=== PATIENT | female | born 1945 | race Caucasian/White ===

== ENCOUNTER 2022-12-26 08:17 | Inpatient (IN) | payer MEDICARE, SELFPAY ==
[2022-12-26] VITALS (9 sets, daily range): BP systolic 121–161; BP diastolic 45–72; PULSE 56–66; RESP 12–19; TEMP 35.7–36.5; O2SAT 96–98; BMI 24.6
--- NOTE | ~2022-12-26 | XR_ITS ---
EXAMINATION: XR CHEST CLINICAL INFORMATION: Pleural effusion. COMPARISON: None available. TECHNIQUE: Frontal view of the chest was obtained. FINDINGS: Evaluation is limited by patient positioning. The lungs are moderately expanded. The left hemithorax is grossly clear. There is a moderate to large right pleural effusion. Cardiac silhouette is partially obscured. Thoracic aorta appears tortuous and ectatic. XR/XR chest 1V IMPRESSION: Moderate to large right pleural effusion.
--- NOTE | ~2022-12-26 | IR_ITS ---
EXAMINATION: IR VENOGRAPH IVC CLINICAL INFORMATION: DVT. COMPARISON: None available. TECHNIQUE: Fluoroscopic guidance was provided for IVC filter placement to Dr. Montgomery. FINDINGS: Initial image demonstrates a inferior vena cavogram via the right femoral system. Later images demonstrate placement of a [place] retrievable IVC filter with the top of the filter at the L2-L3 disc space below the renal veins. FLUOROSCOPY TIME: 1.7 minutes DOSE AREA PRODUCT: 1270 cGy.cm2 IMAGES: 4 saved fluoroscopic runs and 1 screen saved image. IR/IR IVC filter placement IMPRESSION: Fluoroscopic guidance for IVC filter placement.
--- NOTE | 2022-12-26 08:31 | ED.AMS ---
HPI - Altered Mental Status General Chief Complaint: General Medical Stated Complaint: LOW BS 39,D10 GIVEN PER EMS Time Seen by Provider: 12/26/22 08:19 Source: patient, EMS and old records reviewed Mode of arrival: EMS Limitations: no limitations History of Present Illness HPI narrative: 77-year-old female with history of DM 2 on insulin, CKD, anemia of chronic disease, left lower extremity DVT on Eliquis, CHF, HTN, HLD, COPD, muscle wasting and atrophy who was admitted to [facility] from [facility] on December 1979 who presents to the ER via EMS for evaluation of altered mental status related to hypoglycemia. Patient was found by staff members today diaphoretic and poorly responsive. Her glucose was 39. IV was established and she was started on D10 with improvement in her sugar to 120 prior to arrival to the ER. Patient states she was in her normal state of health last night. She ate a normal dinner. She has been on insulin since arriving to [facility], was previously on oral agents prior to this per her report. She states her blood sugars have been on the lower side in the mornings. She is now feeling back to baseline. She offers no physical complaints. Of note patient did have lab work drawn this morning and she was found to have a hemoglobin of 6.8, hematocrit of 21.6. She was also anemic yesterday with H&H 6.9/21.6. The day after her admission to [facility] on December 20 her H&H was 8.5/26.4. She states she had a GI bleed during her recent admission at [facility]. She states she has not been able to visualize any of the bowel movements that she has had recently when at the rehab facility. Unknown if she is still bleeding. She remains on Eliquis. complaint: altered mental status Onset (ago): hour(s) Severity: severe Context: change in medication Associated symptoms: weakness Treatments prior to arrival: glucose and IV fluid Related Data Home Medications Medication Instructions Recorded Confirmed acetaminophen 325 mg tablet 650 mg PO Q4H PRN Pain 12/26/22 12/26/22 albuterol sulfate 90 mcg/actuation 2 puff inhalation Q6H PRN Wheezing 12/26/22 12/26/22 aerosol inhaler amlodipine 10 mg tablet 10 mg PO DAILY 12/26/22 12/26/22 apixaban 2.5 mg tablet (Eliquis) 2.5 mg PO BID 12/26/22 12/26/22 ascorbic acid (vitamin C) 500 mg 500 mg PO DAILY 12/26/22 12/26/22 tablet atorvastatin 20 mg tablet 20 mg PO DAILY 12/26/22 12/26/22 carvedilol 12.5 mg tablet 12.5 mg PO BID 12/26/22 12/26/22 cyanocobalamin (vitamin B-12) 1,000 mcg PO DAILY 12/26/22 12/26/22 1,000 mcg tablet dexamethasone 4 mg tablet 4 mg PO DAILY 12/26/22 12/26/22 docusate sodium 100 mg capsule 100 mg PO BID 12/26/22 12/26/22 dronabinol 2.5 mg capsule 2.5 mg PO BID 12/26/22 12/26/22 ergocalciferol (vitamin D2) 1,250 1,250 mcg PO QWEEK 12/26/22 12/26/22 mcg (50,000 unit) capsule fenofibrate nanocrystallized 48 mg 48 mg PO DAILY 12/26/22 12/26/22 tablet ferrous sulfate 325 mg (65 mg 325 mg PO DAILY 12/26/22 12/26/22 iron) tablet furosemide 40 mg tablet 40 mg PO BID 12/26/22 12/26/22 insulin glargine 100 unit/mL (3 15 unit subcut BEDTIME 12/26/22 12/26/22 mL) subcutaneous pen insulin lispro 100 unit/mL 1 sliding scale dose subcut 12/26/22 12/26/22 subcutaneous pen (Humalog KwikPen USEASDIRECTD (U-100) Insulin) ipratropium 0.5 mg-albuterol 3 mg 3 ml inhalation Q4H PRN Wheezing 12/26/22 12/26/22 (2.5 mg base)/3 mL nebulization soln lidocaine 5 % topical patch 1 patch topical DAILY 12/26/22 12/26/22 metoclopramide HCl 5 mg tablet 5 mg PO QID 12/26/22 12/26/22 (Reglan) olanzapine 2.5 mg tablet 2.5 mg PO DAILY 12/26/22 12/26/22 pantoprazole 40 mg tablet,delayed 40 mg PO DAILY 12/26/22 12/26/22 release sucralfate 1 gram tablet 1 g PO QID 12/26/22 12/26/22 trazodone 50 mg tablet 50 mg PO BEDTIME 12/26/22 12/26/22 Allergies Allergy/AdvReac Type Severity Reaction Status Date / Time erythromycin base Allergy Unknown unknown Verified 12/26/22 08:36 [From Erythrocin] Review of Systems Review of Systems: Yes all other systems are reviewed and are negative [facility] Social History Social History Advance Directives: No Advance Directives Information Provided: Yes Physical Exam ED Vital Signs: Vital Signs - 24 hr 12/26/22 08:27 12/26/22 10:43 Pulse Rate 60 59 Respiratory Rate 18 12 Blood Pressure 128/58 L 134/45 L Pulse Oximetry 96 97 Oxygen Delivery Method Room Air Room Air BMI result Body Mass Index 24.6 Appearance: Alert. Oriented X3. No acute distress. Pale Head: normocephalic, atraumatic. Eyes: Pupils equal, round and reactive to light. ENT: Pharynx normal. No tonsillar swelling or exudate. Neck: Normal inspection. Neck supple. CVS: Normal heart rate and rhythm. Pulses normal. Respiratory: No respiratory distress. Breath sounds normal. Abdomen: Soft with tenderness periumbilically with a dressing in place, no rebound or guarding. +BS x4. LUPE with brown heme+ stool, no palpable hemorrhoids Skin: Skin warm and dry. Normal skin color. Normal skin turgor. No rashes. Extremities: No lower extremity edema. No joint swelling. Neuro/psych: Oriented X 3. No motor deficit. No sensory deficit. Weak LE bilaterally. Strength is equal and symmetrical throughout. CN II-XII intact. Normal speech and cognition. Course Reevaluation(s) Reevaluation #1: Patient was initially normoglycemic on arrival to the ER. Fingerstick was then checked and it was down to 47. She was given 2 orange juices into cheese sticks however her glucose continue to drop into the 30s. She was awake. She was and started on D10, the completion of the 250 cc bolus from EMS was given and patient was started on D 10 W at 75 cc an hour. Rectal exam performed that was positive, brown stool. She reports history of GI bleed at [facility] where she thinks she was given 4-5 units of blood during her last admission. She remains on Eliquis Time: 09:45 Reevaluation #2: Received records from [facility]. In short patient had a complex admission to [facility] in November. She had a large right-sided pleural effusion requiring chest tube, transudative fluid negative for malignancy. She had a brief ICU stay requiring BiPAP due to bradycardia, severe acidosis, lethargy and hypoxia. CT scan showed a pelvic mass, colon involvement and a biopsy was performed showing high-grade adenocarcinoma of gynecological origin. She was deemed not a candidate for chemotherapy with options hospice care verses rehab to regain strength given her cachexia. She had Bacteroides bacteremia, treated with antibiotics, likely from GI source. Echo during her admission showed wall motion abnormalities and grade 2 diastolic dysfunction. Time: 11:24 Consultations Consultation #1: GI - Dr. Figueredo Medical Decision Making Medical Decision Making MDM Narrative: 77-year-old female with a complex medical history including a newly diagnosed high-grade adenocarcinoma of gynecologic origin, DVT on Eliquis, AFib, HTN, CHF, HLD, dm, reported tissue no status with cachexia and recent admission at [facility] with pleural effusion, [place], NSTEMI, new cancer diagnosis who presents today to the ER for evaluation of acute mental status changes and hypoglycemia. She was found to be hypoglycemic at 39 at the rehab facility. She did improve with D10 however quickly dropped again. She required initiation of D10 infusion to maintain her blood glucose. She is tolerating p.o.. Hypoglycemia most likely due to cachexia, poor p.o. intake and exogenous insulin. She is on 15 units of Lantus per day along with Humalog. She states prior to her admission she was never on insulin. Will plan to hold insulin, continue D10. Patient also found to be severely anemic with hemoglobin of 7.1 today. Her hemoglobin was 6.8 yesterday from 8.5 last week. She does have heme-positive stools on examination. She is on anticoagulation. She reports history of GI bleed requiring 4-5 units of blood at [facility]. On the recent records we just received there is no record of GI bleed during that admission. Will need to go back further in her records to see when her last EGD and colonoscopy were and with the results were. No bowel movements here. No active bleeding. She is hemodynamically stable. GI is aware of her case. Dr. Figueredo was tiger texted Patient was consented for blood, 1 unit of PRBC was ordered. She has significant diastolic heart failure and her BNP is almost 800. She does not seem volume overloaded but will give her dose of Lasix with her blood transfusion. Will transfuse slowly given her risk of volume overload. Will plan for admission for further monitoring of her hypoglycemia and anemia. Hospitalist has been tiger text for admission Of note patient is DNR DNI, hospice care was discussed during her last admission and she opted to go to rehab to try to get stronger to be able to be a candidate for chemotherapy. Differential Diagnosis Differential Diagnoses: The differential diagnosis associated with the presentation includes Exogenous insulin overdose, worsening renal failure, dehydration, stroke, acute blood loss anemia, upper GI bleed, lower GI bleed Admission/Observation Consideration of admission/observation: Escalation of care including admission/observation considered Recurrent hypoglycemia and acute blood loss anemia requiring blood transfusion Consult Healthcare Provider Management of the patient was discussed with: Hospitalist and Marketing Recruiter Dr. Figueredo GI Lab Data MDM Lab Attestation statement: I reviewed the patient's lab results. Significant normocytic anemia, CKD at baseline, BUN elevated concerning for upper GI bleeding 12/26/22 09:18 12/26/22 09:18 Labs: Lab Results 12/26/22 12/26/22 12/26/22 Range/Units 08:31 08:55 09:18 WBC 9.3 (4.8-10.8) X10*3/uL RBC 2.51 L (4.20-5.50) X10*6/uL Hgb 7.1 L (12.0-16.0) g/dl Hct 22.4 L (37.0-47.0) % MCV 89.2 (80.0-98.0) fL MCH 28.3 (27.0-33.0) pg MCHC 31.7 (31.0-35.0) g/dl RDW 19.3 H (11.0-16.0) % Plt Count 267 (160-400) X10*3/uL MPV 10.3 (9.4-12.3) fL Immature Gran % (Auto) 1.0 H (0.0-0.4) % Neut % (Auto) 77.4 H (45-73) % Lymph % (Auto) 14.1 L (20-40) % [place] % (Auto) 6.3 (2-11) % Eos % (Auto) 1.1 (0-4) % Baso % (Auto) 0.1 (0-2) % Lymph # (Auto) 1.3 (1.2-4.9) X10*3/uL [place] # (Auto) 0.6 (0.1-1.2) X10*3/uL Eos # (Auto) 0.1 (0.0-0.4) X10*3/uL Baso # (Auto) 0.0 (0.0-0.2) X10*3/uL Abs Immat Gran (auto) 0.09 H (0.00-0.03) X10*3/uL Absolute Neuts (auto) 7.2 (2.0-8.3) x10*3/uL Absolute Nucleated RBC 0.000 (0.0-0.012) X10*3/uL Nucleated RBC % (auto) 0.0 (0.0-0.2) /100WBC Absolute Retic 0.079 (0.026-0.095) X10*6/uL Percent Retic 3.1 H (0.5-1.8) % Immature Retic Fraction 13.3 (3.0-15.9) % Retic Hgb Equivalent 26.3 L (30.0-35.0) pg PT (10.0-13.1) SEC INR (0.9-1.1) APTT (26.0-36.4) SEC Sodium (135-145) mmol/L Potassium (3.3-5.1) mmol/L Chloride (96-108) mmol/L Carbon Dioxide (22-29) mmol/L Anion Gap (12-20) BUN (9-16) mg/dL Creatinine (0.5-1.4) mg/dL Estim Creat Clear Calc Estimated GFR POC Glucose 48 L* 37 L* (60-115) mg/dL Random Glucose (60-115) mg/dL Calcium (8.4-10.2) mg/dL Magnesium (1.6-2.6) mg/dL Iron (30-160) mcg/dL TIBC (228-428) mcg/dL % Saturation (15-50) % Unsat Iron Binding ug/dL Total Bilirubin (0.0-1.0) mg/dL Direct Bilirubin (0.0-0.5) mg/dL AST (5-31) U/L ALT (0-31) U/L Alkaline Phosphatase (39-117) U/L B-Natriuretic Peptide (<100) pg/mL Total Protein (6.5-8.0) g/dL Albumin (3.5-5.0) g/dL Stool Occult Blood (NEGATIVE) Blood Type Antibody Screen Crossmatch 12/26/22 12/26/22 12/26/22 Range/Units 09:18 09:18 09:18 WBC (4.8-10.8) X10*3/uL RBC (4.20-5.50) X10*6/uL Hgb (12.0-16.0) g/dl Hct (37.0-47.0) % MCV (80.0-98.0) fL MCH (27.0-33.0) pg MCHC (31.0-35.0) g/dl RDW (11.0-16.0) % Plt Count (160-400) X10*3/uL MPV (9.4-12.3) fL Immature Gran % (Auto) (0.0-0.4) % Neut % (Auto) (45-73) % Lymph % (Auto) (20-40) % [place] % (Auto) (2-11) % Eos % (Auto) (0-4) % Baso % (Auto) (0-2) % Lymph # (Auto) (1.2-4.9) X10*3/uL [place] # (Auto) (0.1-1.2) X10*3/uL Eos # (Auto) (0.0-0.4) X10*3/uL Baso # (Auto) (0.0-0.2) X10*3/uL Abs Immat Gran (auto) (0.00-0.03) X10*3/uL Absolute Neuts (auto) (2.0-8.3) x10*3/uL Absolute Nucleated RBC (0.0-0.012) X10*3/uL Nucleated RBC % (auto) (0.0-0.2) /100WBC Absolute Retic (0.026-0.095) X10*6/uL Percent Retic (0.5-1.8) % Immature Retic Fraction (3.0-15.9) % Retic Hgb Equivalent (30.0-35.0) pg PT (10.0-13.1) SEC INR (0.9-1.1) APTT (26.0-36.4) SEC Sodium 134 L (135-145) mmol/L Potassium 4.1 (3.3-5.1) mmol/L Chloride 102 (96-108) mmol/L Carbon Dioxide 25 (22-29) mmol/L Anion Gap 11 L (12-20) BUN 49 H (9-16) mg/dL Creatinine 0.98 (0.5-1.4) mg/dL Estim Creat Clear Calc 44.6 Estimated GFR 55 POC Glucose (60-115) mg/dL Random Glucose 176 H (60-115) mg/dL Calcium 8.0 L (8.4-10.2) mg/dL Magnesium 1.2 L* (1.6-2.6) mg/dL Iron 39 (30-160) mcg/dL TIBC 144 L (228-428) mcg/dL % Saturation 27 (15-50) % Unsat Iron Binding 105 ug/dL Total Bilirubin 0.2 (0.0-1.0) mg/dL Direct Bilirubin < 0.2 (0.0-0.5) mg/dL AST 22 (5-31) U/L ALT 51 H (0-31) U/L Alkaline Phosphatase 155 H (39-117) U/L B-Natriuretic Peptide 753 H (<100) pg/mL Total Protein 4.6 L (6.5-8.0) g/dL Albumin 1.8 L (3.5-5.0) g/dL Stool Occult Blood (NEGATIVE) Blood Type O Positive Antibody Screen NEGATIVE Crossmatch See Detail 12/26/22 12/26/22 Range/Units 09:24 10:52 WBC (4.8-10.8) X10*3/uL RBC (4.20-5.50) X10*6/uL Hgb (12.0-16.0) g/dl Hct (37.0-47.0) % MCV (80.0-98.0) fL MCH (27.0-33.0) pg MCHC (31.0-35.0) g/dl RDW (11.0-16.0) % Plt Count (160-400) X10*3/uL MPV (9.4-12.3) fL Immature Gran % (Auto) (0.0-0.4) % Neut % (Auto) (45-73) % Lymph % (Auto) (20-40) % [place] % (Auto) (2-11) % Eos % (Auto) (0-4) % Baso % (Auto) (0-2) % Lymph # (Auto) (1.2-4.9) X10*3/uL [place] # (Auto) (0.1-1.2) X10*3/uL Eos # (Auto) (0.0-0.4) X10*3/uL Baso # (Auto) (0.0-0.2) X10*3/uL Abs Immat Gran (auto) (0.00-0.03) X10*3/uL Absolute Neuts (auto) (2.0-8.3) x10*3/uL Absolute Nucleated RBC (0.0-0.012) X10*3/uL Nucleated RBC % (auto) (0.0-0.2) /100WBC Absolute Retic (0.026-0.095) X10*6/uL Percent Retic (0.5-1.8) % Immature Retic Fraction (3.0-15.9) % Retic Hgb Equivalent (30.0-35.0) pg PT 14.7 H (10.0-13.1) SEC INR 1.3 H (0.9-1.1) APTT 35.6 (26.0-36.4) SEC Sodium (135-145) mmol/L Potassium (3.3-5.1) mmol/L Chloride (96-108) mmol/L Carbon Dioxide (22-29) mmol/L Anion Gap (12-20) BUN (9-16) mg/dL Creatinine (0.5-1.4) mg/dL Estim Creat Clear Calc Estimated GFR POC Glucose (60-115) mg/dL Random Glucose (60-115) mg/dL Calcium (8.4-10.2) mg/dL Magnesium (1.6-2.6) mg/dL Iron (30-160) mcg/dL TIBC (228-428) mcg/dL % Saturation (15-50) % Unsat Iron Binding ug/dL Total Bilirubin (0.0-1.0) mg/dL Direct Bilirubin (0.0-0.5) mg/dL AST (5-31) U/L ALT (0-31) U/L Alkaline Phosphatase (39-117) U/L B-Natriuretic Peptide (<100) pg/mL Total Protein (6.5-8.0) g/dL Albumin (3.5-5.0) g/dL Stool Occult Blood POSITIVE (NEGATIVE) Blood Type Antibody Screen Crossmatch Independent Interpretation I performed an independent interpretation of an: EKG Interpretation: EKG was sinus bradycardia, PVCs present, heart rate 57 beats per minute, normal AK interval, no ST segment elevations or depressions. Independent Historian Clinical information obtained from an independent historian. History obtained from or confirmed by: EMS External Record Review External record reviewed: Outpatient record, Prior outpatient labs and Prior outpatient radiology Prescription Management I considered prescription management with: Other (lasix, blood) Chronic Conditions Patient?s care impacted by: Diabetes and Other (AFib on Eliquis, DVT) Critical Care Time Critical Care Time Critical Care Time: Yes Total Critical Care Time: 49 Attestation: I have personally provided critical care time exclusive of time spent on separately billable procedures. Time includes review of lab data, radiology results, discussion with consultants, and monitoring for potential decompensation. Intervention performed as documented. Discharge Plan Discharge Clinical Impression: Acute blood loss anemia, Hypoglycemia, CHF (congestive heart failure), Gynecologic cancer Patient Disposition: Admitted As Inpatient
--- NOTE | 2022-12-26 08:36 | ECG_ITS ---
Test Reason : weakness Blood Pressure : / mmHG Vent. Rate : 057 BPM Atrial Rate : 057 BPM P-R Int : 140 ms QRS Dur : 100 ms QT Int : 422 ms P-R-T Axes : 027 047 -08 degrees QTc Int : 410 ms Sinus bradycardia with Premature supraventricular complexes Nonspecific T wave abnormality Abnormal ECG No previous ECGs available Referred By: Day Garcia Electronically Signed By:RAYMOND AVALOS MD
[2022-12-26 09:03] LABS: Glucose, Whole Blood 48 mg/dL (60-115)
[2022-12-26 09:04] LABS: Glucose, Whole Blood 37 mg/dL (60-115)
[2022-12-26 09:23] LABS: MANUAL DIFF FLAG NO
[2022-12-26 09:26] LABS: Basophils Percent Auto 0.1 % (0-2); Eosinophils Absolute Auto 0.1 X10*3/uL (0.0-0.4); Eosinophils Percent Auto 1.1 % (0-4); Hematocrit 22.4 % (37.0-47.0); Hemoglobin 7.1 g/dl (12.0-16.0); Imm Gran Abs Auto 0.09 X10*3/uL (0.00-0.03); Immature Retic Fraction 13.3 % (3.0-15.9); Lymphocytes Absolute Auto 1.3 X10*3/uL (1.2-4.9); Lymphocytes Percent Auto 14.1 % (20-40); Mean Corpuscular HGB Conc 31.7 g/dl (31.0-35.0); Mean Corpuscular Hemoglobin 28.3 pg (27.0-33.0); Mean Corpuscular Volume 89.2 fL (80.0-98.0); Mean Platelet Volume 10.3 fL (9.4-12.3); Monocytes Absolute Auto 0.6 X10*3/uL (0.1-1.2); Monocytes Percent Auto 6.3 % (2-11); Neutrophils Absolute Auto 7.2 x10*3/uL (2.0-8.3); Neutrophils Percent Auto 77.4 % (45-73); Platelet Count 267 X10*3/uL (160-400); Red Blood Count 2.51 X10*6/uL (4.20-5.50); Red Cell Distribution Width 19.3 % (11.0-16.0); Retic HGB Equivalent 26.3 pg (30.0-35.0); Reticulocyte Percent 3.1 % (0.5-1.8); Reticulocytes Absolute 0.079 X10*6/uL (0.026-0.095); White Blood Count 9.3 X10*3/uL (4.8-10.8)
--- NOTE | 2022-12-26 09:38 | PHA.MEDREC ---
Pharmacy Consult ? Medication Reconciliation Pharmacy has completed the medication reconciliation. List from [facility]
[2022-12-26 09:40] LABS: OBS Int Ctl Valid YES; OBS1 POSITIVE (NEGATIVE)
--- NOTE | 2022-12-26 09:41 | PC.NURSE ---
notified that patient is here
[2022-12-26 10:03] LABS: Alanine Aminotransferase 51 U/L (0-31); Albumin Level 1.8 g/dL (3.5-5.0); Alkaline Phosphatase 155 U/L (39-117); Anion Gap 11 (12-20); Aspartate Amino Transferase 22 U/L (5-31); Bilirubin Direct < 0.2 mg/dL (0.0-0.5); Bilirubin Total 0.2 mg/dL (0.0-1.0); Blood Urea Nitrogen 49 mg/dL (9-16); Carbon Dioxide 25 mmol/L (22-29); Chloride 102 mmol/L (96-108); Creatinine Clr Calc Pharmacy 44.6; Estimated Glomerular Filt Rate 55; Glucose Random 176 mg/dL (60-115); Iron 39 mcg/dL (30-160); Percent Iron Saturation 27 % (15-50); Potassium 4.1 mmol/L (3.3-5.1); Sodium 134 mmol/L (135-145); Total Iron Binding Capacity 144 mcg/dL (228-428); Total Protein 4.6 g/dL (6.5-8.0); Unsaturated Iron Binding 105 ug/dL
[2022-12-26 10:04] LABS: Magnesium 1.2 mg/dL (1.6-2.6)
[2022-12-26 10:11] LABS: B Type Natriuretic Peptide 753 pg/mL (<100)
[2022-12-26] MEDS: Dextrose 10 % 1,000 ML 75 ML IVCONT (11:00)
[2022-12-26 11:04] LABS: INTERNATIONAL NORM RATIO 1.3 (0.9-1.1); Prothrombin Time 14.7 SEC (10.0-13.1)
[2022-12-26 11:06] LABS: Partial Thromboplastin Time 35.6 SEC (26.0-36.4)
[2022-12-26 12:29] LABS: Glucose, Whole Blood 127 mg/dL (60-115)
[2022-12-26 12:33] LABS: Glucose, Whole Blood 126 mg/dL (60-115)
[2022-12-26] MEDS: Magnesium Sulfate/H2O 2 GM/50 ML PIGGYBACK IV ×2 (12:51→14:31)
[2022-12-26] MEDS: Furosemide 40 MG/4 ML VIAL IVPUSH (12:52)
--- NOTE | 2022-12-26 13:13 | P.HPHOSP_ITS ---
History of Present Illness Date of Service: 12/26/22 Attending physician on admission: Soila Smith Chief Complaint: AMS, hypoglycemia Pt is a 77-year-old female with a PMH significant for HTN, HLD, insulin- dependent diabetes type 2, CKD, DVT, COPD, anemia, anxiety, AFib on Eliquis, HFrEF, and 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 Patient is in short-term rehab at [facility] and was found by staff this morning to be diaphoretic and poorly responsive. POC glucose was measured at 39. EMS call, IV was established, and patient was started on D10 with improvement to mentation. Patient notes she has to be only on oral diabetic medications -- metformin and glipizide -- but started on insulin of week ago after recent discharge from [facility]. Patient with a history of cachexia and anorexia, but states that she has been eating well lately. During current interview patient is alert and oriented x4 and asymptomatic. Her only complaint is fatigue, chronic leg swelling, and chronic mild lower abdominal pain. Denies chest pain/pressure, palpitations. No shortness of breath in denies headache, lightheadedness, dizziness. Of note, pt recently was at [facility] for a prolonged admission from 11/25-12/19/2022. Use supra gently admitted for acute hypoxic respiratory failure and right-sided pneumonia with large right pleural effusion and required chest tube. Hospital course complicated by Gram-negative haley bacteremia, BYRON, lethargy, hypoxia, bradycardia, and severe acidosis that required an ICU stay on BiPAP. CT of abdomen and pelvis also found multiple masses suspicious for metastatic malignancy. CT-guided biopsy on 12/05 found high-grade and dental carcinoma of gynecological origin with likely multiple metastases to colon. During patient's stay she also developed AFib and echocardiogram revealed reduced LVEF of 45-50%. Patient was not found to be a candidate for chemotherapy due to deconditioning. Palliative care was discussed with family, but patient elected to go to short-term rehab in order to gain strength and mobility in order to become a candidate for chemotherapy. Of note, patient was previously at [facility] for physical therapy and rehab in October 2022, was found there to have a DVT of left lower extremity and started on Eliquis. In the ED patient was afebrile, slightly hypotensive at 128/58, satting at 96% on RA. Labs were significant for H&H of 7.1/22.4, POC glucose as low as 37, magnesium of 1.2, ALT 51, alk-phos of 155, BNP 753, albumin 1.8. Stool positive for occult blood. CXR showed moderate to large right pleural effusion. ?EKG demonstrated sinus bradycardia of 57 with premature supraventricular complexes and no evidence of ST elevations or depressions. Pt was treated with D10, Mag sulfate, furosemide, and given 1 unit of PRBCs. Pt will be admitted to the hospital for treatment of?altered mental status secondary to hypoglycemia, hypomagnesemia, and anemia. Review of Systems Review of Systems: Fatigue Confusion Chronic lower abdominal pain Denies chest pain/pressure, palpitations No shortness of breath Denies Fever, chills, nausea, vomiting No lightheadedness or dizziness Yes all other systems are reviewed and are negative PMFSH Social History Household Members: Other Household Members Other:: SNF Housing: Intermediate Do you presently have visiting nurse or other home services: Yes Patient Tobacco Use Status: Former Tobacco user service: No Meds Allergies Allergy/AdvReac Type Severity Reaction Status Date / Time erythromycin base Allergy Unknown unknown Verified 12/26/22 08:36 [From Erythrocin] Active Medications: Current Medications Albuterol Sulfate (Albuterol Sulfate 90 Mcg 8 Gm Inhaler) 2 puff INHALE Q6H PRN PRN Reason: Wheezing Albuterol/Ipratropium (Albuterol/Iprat 2.5/0.5mg 3 Ml Ampul.Neb) 3 ml INHALE Q4H PRN PRN Reason: Wheezing Atorvastatin Calcium (Atorvastatin Calcium 20 Mg Tablet) 20 mg PO DAILY BRENDA Cyanocobalamin (Cyanocobalamin (Vitamin B-12) 1,000 Mcg Tablet) 1,000 mcg PO DAILY BRENDA Dexamethasone (Dexamethasone 4 Mg Tablet) 4 mg PO DAILY BRENDA Docusate Sodium (Docusate Sodium 100 Mg Capsule) 100 mg PO BID BRENDA Ergocalciferol (Ergocalciferol (Vitamin D2) 1,250 Mcg Capsule) 1,250 mcg PO QWEEK BRENDA Furosemide (Furosemide 40 Mg Tablet) 40 mg PO BID BRENDA; Protocol Dextrose (D10) 1,000 mls @ 75 mls/hr IVCONT .[id number] [facility] Last Admin: 12/26/22 11:00 Dose: 75 mls/hr Metoclopramide HCl (Metoclopramide Hcl 5 Mg Tablet) 5 mg PO QID [facility] Non-Formulary Medication (Pantoprazole) 40 mg PO DAILY [facility] Non-Formulary Medication (Ferrous Sulfate) 325 mg PO DAILY [facility] Olanzapine (Olanzapine 2.5 Mg Tablet) 2.5 mg PO DAILY [facility] Sucralfate (Sucralfate 1 Gm Tablet) 1 gm PO QID [facility] Trazodone HCl (Trazodone Hcl 50 Mg Tablet) 50 mg PO BEDTIME [facility] Home Medications Medication Instructions Recorded Confirmed Last Taken Type acetaminophen 325 mg tablet 650 mg PO Q4H PRN Pain 12/26/22 12/26/22 Unknown History albuterol sulfate 90 mcg/actuation 2 puff inhalation Q6H PRN Wheezing 12/26/22 12/26/22 Unknown History aerosol inhaler amlodipine 10 mg tablet 10 mg PO DAILY 12/26/22 12/26/22 Unknown History apixaban 2.5 mg tablet (Eliquis) 2.5 mg PO BID 12/26/22 12/26/22 Unknown History ascorbic acid (vitamin C) 500 mg 500 mg PO DAILY 12/26/22 12/26/22 Unknown History tablet atorvastatin 20 mg tablet 20 mg PO DAILY 12/26/22 12/26/22 Unknown History carvedilol 12.5 mg tablet 12.5 mg PO BID 12/26/22 12/26/22 Unknown History cyanocobalamin (vitamin B-12) 1,000 mcg PO DAILY 12/26/22 12/26/22 Unknown History 1,000 mcg tablet dexamethasone 4 mg tablet 4 mg PO DAILY 12/26/22 12/26/22 Unknown History docusate sodium 100 mg capsule 100 mg PO BID 12/26/22 12/26/22 Unknown History dronabinol 2.5 mg capsule 2.5 mg PO BID 12/26/22 12/26/22 Unknown History ergocalciferol (vitamin D2) 1,250 1,250 mcg PO QWEEK 12/26/22 12/26/22 Unknown History mcg (50,000 unit) capsule fenofibrate nanocrystallized 48 mg 48 mg PO DAILY 12/26/22 12/26/22 Unknown History tablet ferrous sulfate 325 mg (65 mg 325 mg PO DAILY 12/26/22 12/26/22 Unknown History iron) tablet furosemide 40 mg tablet 40 mg PO BID 12/26/22 12/26/22 Unknown History insulin glargine 100 unit/mL (3 15 unit subcut BEDTIME 12/26/22 12/26/22 Unknown History mL) subcutaneous pen insulin lispro 100 unit/mL 1 sliding scale dose subcut 12/26/22 12/26/22 Unknown History subcutaneous pen (Humalog KwikPen USEASDIRECTD (U-100) Insulin) ipratropium 0.5 mg-albuterol 3 mg 3 ml inhalation Q4H PRN Wheezing 12/26/22 12/26/22 Unknown History (2.5 mg base)/3 mL nebulization soln lidocaine 5 % topical patch 1 patch topical DAILY 12/26/22 12/26/22 Unknown His tory metoclopramide HCl 5 mg tablet 5 mg PO QID 12/26/22 12/26/22 Unknown History (Reglan) olanzapine 2.5 mg tablet 2.5 mg PO DAILY 12/26/22 12/26/22 Unknown History pantoprazole 40 mg tablet,delayed 40 mg PO DAILY 12/26/22 12/26/22 Unknown History release sucralfate 1 gram tablet 1 g PO QID 12/26/22 12/26/22 Unknown History trazodone 50 mg tablet 50 mg PO BEDTIME 12/26/22 12/26/22 Unknown History Physical Exam Vital Signs and Narrative: Vital Signs: Last Vital Signs Pulse 59 12/26/22 10:43 Resp 12 12/26/22 10:43 BP 134/45 L 12/26/22 10:43 Pulse Ox 97 12/26/22 10:43 O2 Del Method Room Air 12/26/22 10:43 BMI result Body Mass Index 24.6 Constitutional: Alert, in no acute distress. Mental Status: Oriented to person, place and time. Eyes: Pupils are equal, round, and reactive to light. Ear, Nose, and Throat: Oropharynx clear, mucous membranes moist. Ears and nose without deformities. Trachea midline. Respiratory: Diminished breath sounds lower right lung. No wheezing, rales, or rhonchi. Cardiovascular: S1, S2. No murmurs, rubs, or gallops. Gastrointestinal: Abdomen soft, non-distended. Lower abdomen diffusely tender . Normal bowel sounds. Neurologic: Cranial nerves II-XII are grossly intact bilaterally. No focal ne urological deficits. Moves all extremities spontaneously. Diminished strength of lower extremities, especially left leg. Skin: No rashes or lesions noted. Musculoskeletal: No cyanosis or clubbing. Extremities: Trace pitting edema right lower leg. 1+ pitting edema left lower leg. Psychiatric: Normal mood and affect. Results Labs 12/26/22 09:18 12/26/22 09:18 Labs: Laboratory Results - last 24 hr 12/26/22 12/26/22 12/26/22 08:31 08:55 09:18 MCV 89.2 MCH 28.3 MCHC 31.7 RDW 19.3 H Plt Count 267 MPV 10.3 Immature Gran % (Auto) 1.0 H Neut % (Auto) 77.4 H Lymph % (Auto) 14.1 L [place] % (Auto) 6.3 Eos % (Auto) 1.1 Baso % (Auto) 0.1 Lymph # (Auto) 1.3 [place] # (Auto) 0.6 Eos # (Auto) 0.1 Baso # (Auto) 0.0 Abs Immat Gran (auto) 0.09 H Absolute Neuts (auto) 7.2 Absolute Nucleated RBC 0.000 Nucleated RBC % (auto) 0.0 Absolute Retic 0.079 Percent Retic 3.1 H Immature Retic Fraction 13.3 Retic Hgb Equivalent 26.3 L PT INR APTT Anion Gap Estim Creat Clear Calc Estimated GFR POC Glucose 48 L* 37 L* Random Glucose Calcium Magnesium Iron TIBC % Saturation Unsat Iron Binding Total Bilirubin Direct Bilirubin AST ALT Alkaline Phosphatase B-Natriuretic Peptide Total Protein Albumin Stool Occult Blood Blood Type Antibody Screen Crossmatch 12/26/22 12/26/22 12/26/22 09:18 09:18 09:18 MCV MCH MCHC RDW Plt Count MPV Immature Gran % (Auto) Neut % (Auto) Lymph % (Auto) [place] % (Auto) Eos % (Auto) Baso % (Auto) Lymph # (Auto) [place] # (Auto) Eos # (Auto) Baso # (Auto) Abs Immat Gran (auto) Absolute Neuts (auto) Absolute Nucleated RBC Nucleated RBC % (auto) Absolute Retic Percent Retic Immature Retic Fraction Retic Hgb Equivalent PT INR APTT Anion Gap 11 L Estim Creat Clear Calc 44.6 Estimated GFR 55 POC Glucose Random Glucose 176 H Calcium 8.0 L Magnesium 1.2 L* Iron 39 TIBC 144 L % Saturation 27 Unsat Iron Binding 105 Total Bilirubin 0.2 Direct Bilirubin < 0.2 AST 22 ALT 51 H Alkaline Phosphatase 155 H B-Natriuretic Peptide 753 H Total Protein 4.6 L Albumin 1.8 L Stool Occult Blood Blood Type O Positive Antibody Screen NEGATIVE Crossmatch See Detail 12/26/22 12/26/22 12/26/22 09:24 09:27 10:52 MCV MCH MCHC RDW Plt Count MPV Immature Gran % (Auto) Neut % (Auto) Lymph % (Auto) [place] % (Auto) Eos % (Auto) Baso % (Auto) Lymph # (Auto) [place] # (Auto) Eos # (Auto) Baso # (Auto) Abs Immat Gran (auto) Absolute Neuts (auto) Absolute Nucleated RBC Nucleated RBC % (auto) Absolute Retic Percent Retic Immature Retic Fraction Retic Hgb Equivalent PT 14.7 H INR 1.3 H APTT 35.6 Anion Gap Estim Creat Clear Calc Estimated GFR POC Glucose 127 H Random Glucose Calcium Magnesium Iron TIBC % Saturation Unsat Iron Binding Total Bilirubin Direct Bilirubin AST ALT Alkaline Phosphatase B-Natriuretic Peptide Total Protein Albumin Stool Occult Blood POSITIVE Blood Type Antibody Screen Crossmatch 12/26/22 12:29 MCV MCH MCHC RDW Plt Count MPV Immature Gran % (Auto) Neut % (Auto) Lymph % (Auto) [place] % (Auto) Eos % (Auto) Baso % (Auto) Lymph # (Auto) [place] # (Auto) Eos # (Auto) Baso # (Auto) Abs Immat Gran (auto) Absolute Neuts (auto) Absolute Nucleated RBC Nucleated RBC % (auto) Absolute Retic Percent Retic Immature Retic Fraction Retic Hgb Equivalent PT INR APTT Anion Gap Estim Creat Clear Calc Estimated GFR POC Glucose 126 H Random Glucose Calcium Magnesium Iron TIBC % Saturation Unsat Iron Binding Total Bilirubin Direct Bilirubin AST ALT Alkaline Phosphatase B-Natriuretic Peptide Total Protein Albumin Stool Occult Blood Blood Type Antibody Screen Crossmatch Assessment and Plan (1) Hypoglycemia: Status: Acute (2) Gynecologic cancer: Status: Acute Plan Pt is a 77-year-old female with a PMH significant for HTN, HLD, insulin- dependent diabetes type 2, CKD, DVT, COPD, anemia, anxiety, AFib on Eliquis, HFr EF, and 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 Pt will be admitted to the hospital for treatment of?altered mental status secondary to hypoglycemia, hypomagnesemia, and anemia. Hypoglycemia Patient's POC as low as 37 in the ED Patient with lethargy, confusion Patient given D10 IVF in ED Patient's POC glucose now 126, patient's mentation back to baseline, will discontinue D10 Will hold all insulin for now Encourage p.o. intake Monitor POC q.2 hours Acute on chronic normocytic anemia Patient's H&H 7.08/04.4 Likely multifactorial: secondary to poor p.o. intake, metastatic malignancy, ?mild gastritis d/t dexamethasone use Patient's states she had 5 blood transfusions while at [facility] during last admission GI consult at [facility] revealed on remarkable endoscopy and colonoscopy Stool positive for occult blood, though no melena, hematochezia Patient will get 1 unit of PRBCs Will hold Eliquis Monitor CBC Left leg DVT Pt developed a DVT during PT at [facility] in early October, was started on Eliquis Eliquis will be held d/t anemia and stool positive for occult blood Vascular surgery consult for likely IVC placement tomorrow Pt will be made NPO after midnight Adenocarcinoma of gynecological origin, high-grade CT of abdomen at [facility] showed multiple masses concerning for malignancy with gynecological origin of potential involvement of colon CT needle-guided biopsy on right pelvic mesenteric mass on 12/05/2022 showed adenocarcinoma of gynecological origin, high-grade Patient not a candidate for chemotherapy d/t weakness and immobility Palliative care was discussed, but patient wished to go to short-term rehab for PT and strength training in the attempt to become a candidate for chemotherapy Patient should follow-up outpatient with [facility]cology and [facility] Hypomagnesemia Patient's magnesium 1.2 at time presentation Given 2 g IV in ED Received an additional 2 g IV of Mag Follow BMP AFib on Eliquis Patient apparently noted to have been in AFib at previous hospitalization at [facility] EKG today showed sinus bradycardia Hold Eliquis due to anemia Continue carvedilol Monitor on telemetry Hx of recurrent pleural effusion Patient received thoracocentesis and chest tube placement on 12/02 at [facility], chest to the seat on 12/08 Pleural fluid cytology was negative for malignancy Current CXR shows moderate to large right pleural effusion Patient asymptomatic, satting at 97% O2 on RA No indication for chest tube placement for now Continue furosemide, monitor respiratory status HFrEF Patient with multiple echoes and [facility], EF noted to be 45-50% with wall motion abnormalities and grade 2 moderate diastolic dysfunction Nuclear stress test at [facility] showed scar with minimal surrounding reversible ischemia BNP elevated at 753, baseline unknown, patient asymptomatic with trace pitting edema bilaterally, worse on left leg Continue furosemide Low-salt diet Hypoalbuminemia Likely secondary to poor p.o. intake Glucerna t.i.d. COPD Not in acute exacerbation Continue home inhalers HTN Hold amlodipine for now d/t soft BP HLD Continue statin Hold fenofibrate, is non formulary DNR/DNI Attending:?Dr. Smith DVT Prophylaxis: Pnematic boots Pt will require a hospitalization of at least two nights for treatment of?altered mental status secondary to hypoglycemia, hypomagnesemia, and anemia. Time Spent With Patient Time: Total time managing care of this patient today ____ minutes. Quality Stroke Does the patient have a stroke diagnosis?: No VTE Prior VTE?: Yes Approximate Date of Prior VTE: 09/11/22 VTE Risk Level:: Medical - moderate - high VTE Device Contraindication: N/A - Device Ordered VTE Drug Contraindication: Treatment Not Indicated
[2022-12-26 13:45] LABS: Appearance Urine Clear; Color Urine Yellow; Glucose Urine UA Negative (Negative); Leukocyte Esterase Urine Moderate (2+) (Negative); Nitrite Urine Negative (Negative); PH 5.5 (5.0-9.0); UMIC TRIGGER UACC YES; Urine Blood Trace (Negative); Urine Ketones Negative (Negative); Urine Protein 30 (1+) mg/dL (Neg-Trace)
[2022-12-26 13:50] LABS: Bacteria Urine None Seen (None Seen); Hyaline Casts Urine 0-2 /LPF (0-2); RBC Urine 0-2 /HPF (0-2); UACC Culture Trigger YES; WBC Urine 21-50 /HPF (0-5)
--- NOTE | 2022-12-26 14:36 | P.CNGI_ITS ---
History of Present Illness Data of Consult Service Date: 12/26/22 Requesting physician: Day Garcia Primary Care Provider: Unknown Physician HPI Reason for consult: anemia, heme positive stools 77 YF with DM 2 on insulin, CKD, anemia of chronic disease, left lower extremity, DVT on Eliquis, CHF, HTN, HLD, COPD, muscle wasting and atrophy seen at [facility] for evaluation of altered mental status related to hypoglycemia.?Patient was found by staff members at SNF today diaphoretic and po charla responsive.? Her glucose was 39.? IV was established and she was started on D10 with improvement in her sugar to 120 prior to arrival to the ER. Patient states she was in her normal state of health last night.? She ate a normal dinner.? She has been on insulin since arriving to [facility], was previously on oral agents prior to this per her report.? She states her blood sugars have been on the lower side in the mornings.? She is now feeling back to baseline.? She offers no physical complaints. Of note patient did have lab work drawn this morning and she was found to have a hemoglobin of 6.8, hematocrit of 21.6.? She was also anemic yesterday with H&H 6.9/21.6.? The day after her admission to SNF on December 20 her H&H was 8.5/26.4.? Pt denies abd pain or a hx of PUD. She admits to taking a baby aspirin daily. She had a poor appetite which she states has improved after she was started on an appetite stimulant She states she had a GI bleed during her recent admission at [facility].? She states she has not been able to visualize any of the bowel movements that she has had recently when at the rehab facility.? Unknown if she is still bleeding.? Pt was on Eliquis which was held on arrival to the ER. Pt reports she has received a toltal of 5 U of PRBCs over the past 7 to 8 weeks. She admits to smoking until 7 to 8 weeks ago. Pt reports she has a Televisit with the [facility] on 01/02/23 to discuss treatment plan. 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 She has 1 daughter. PAST GI HISTORY BY REVIEW OF MEDICAL RECORDS: Pt was hospitalized at [facility] 11/01 to 11/09/22 with LL Ext DVT and started on heparin and switched to apixaban Pt was noted to have KETAN without acute bleeding - transfused 1 U PRBCs 11/08/22 Pt had an EGD which showed duodenal erythema. Colon showed moderate diverticulosis without bleeding Pt was advised oral iron replacement. She was discharged to SNF on 11/09/22 Pt was readmitted 11/25/22 with acute hypoxic respiratory failure and right-sided pneumonia with large right pleural effusion requiring chest tube. Hospital course was complicated by BYRON and Gram-negative haley bacteremia concerning for bacteroides fragilis 12/03/22 - transferred to ICU with with her G, hypoxia and bradycardia with severe acidosis and placed on BiPAP. Abdominal CT scan showed multiple masses concerning for malignancy with involvement of the colon. 12/05/22 CT guided bx showed high-grade adenocarcinoma of gynecological origin and gynecological oncology was consulted. On 12/12/2022 patient had a family meeting with palliative Care and [facility] for goal of care plan. Patient was not considered a suitable candidate for chemotherapy. Options discussed were hospice care and discharge home versus rehab to gain strength to determinate if she becomes a candidate for chemotherapy. Pt was transferred to [facility] from [facility] in on December 1979 who presents to the ER via EMS Review of Systems Review of Systems: Fatigue Confusion Chronic lower abdominal pain Denies chest pain/pressure, palpitations No shortness of breath Denies Fever, chills, nausea, vomiting No lightheadedness or dizziness Yes all other systems are reviewed and are negative [facility] Past Medical History Medical History (Updated 12/31/22 @ 00:08 by Thea Nunez) CHF (congestive heart failure) DVT (deep venous thrombosis) Gynecologic cancer Social History Social History Household Members: Other Household Members Other:: SNF Housing: Longterm Do you presently have visiting nurse or other home services: Yes Patient Tobacco Use Status: Former Tobacco user service: No Meds Allergies Allergy/AdvReac Type Severity Reaction Status Date / Time erythromycin base Allergy Unknown unknown Verified 12/26/22 08:36 [From Erythrocin] Active Medications: Current Medications Acetaminophen (Acetaminophen 325 Mg Tablet) 650 mg PO Q6H PRN PRN Reason: Pain, Mild (Pain Scale 1-3) Albuterol Sulfate (Albuterol Sulfate 90 Mcg 8 Gm Inhaler) 2 puff INHALE Q6H PRN PRN Reason: Wheezing Albuterol/Ipratropium (Albuterol/Iprat 2.5/0.5mg 3 Ml Ampul.Neb) 3 ml INHALE Q4H PRN PRN Reason: Wheezing Atorvastatin Calcium (Atorvastatin Calcium 20 Mg Tablet) 20 mg PO DAILY [facility] Carvedilol (Carvedilol 12.5 Mg Tablet) 12.5 mg PO BID [facility]; Protocol Cyanocobalamin (Cyanocobalamin (Vitamin B-12) 1,000 Mcg Tablet) 1,000 mcg PO DAILY [facility] Docusate Sodium (Docusate Sodium 100 Mg Capsule) 100 mg PO BID [facility] Ergocalciferol (Ergocalciferol (Vitamin D2) 1,250 Mcg Capsule) 1,250 mcg PO Q7D [facility] Ferrous Sulfate (Ferrous Sulfate 324 Mg Tablet.) 324 mg PO DAILY [facility] Furosemide (Furosemide 40 Mg Tablet) 40 mg PO BID [facility]; Protocol Magnesium Sulfate (Magnesium Sulfate/H2o) 2 gm in 50 mls @ 25 mls/hr IV ONCE ONE Stop: 12/26/22 15:34 Last Admin: 12/26/22 14:31 Dose: 25 mls/hr Sodium Chloride (Ns) 1,000 mls @ 100 mls/hr IVCONT .Q10H [facility] Metoclopramide HCl (Metoclopramide Hcl 5 Mg Tablet) 5 mg PO TID PRN PRN Reason: nausea and vomiting Olanzapine (Olanzapine 2.5 Mg Tablet) 2.5 mg PO DAILY [facility] Omeprazole (Omeprazole 20 Mg Capsule.) 20 mg PO DAILY@0630 [facility] Sodium Chloride (0.9 % Sodium Chloride Flush 3 Ml Syringe) 3 ml IVFLUSH QSHIFT [facility] Sucralfate (Sucralfate 1 Gm Tablet) 1 gm PO QID [facility] Trazodone HCl (Trazodone Hcl 50 Mg Tablet) 50 mg PO BEDTIME [facility] Home Medications Medication Instructions Recorded Confirmed Last Taken Type acetaminophen 325 mg tablet 650 mg PO Q4H PRN Pain 12/26/22 12/26/22 Unknown History albuterol sulfate 90 mcg/actuation 2 puff inhalation Q6H PRN Wheezing 12/26/22 12/26/22 Unknown History aerosol inhaler apixaban 2.5 mg tablet (Eliquis) 2.5 mg PO BID 12/26/22 12/26/22 Unknown History ascorbic acid (vitamin C) 500 mg 500 mg PO DAILY 12/26/22 12/26/22 Unknown History tablet atorvastatin 20 mg tablet 20 mg PO DAILY 12/26/22 12/26/22 Unknown History carvedilol 12.5 mg tablet 12.5 mg PO BID 12/26/22 12/26/22 Unknown History cyanocobalamin (vitamin B-12) 1,000 mcg PO DAILY 12/26/22 12/26/22 Unknown History 1,000 mcg tablet docusate sodium 100 mg capsule 100 mg PO BID 12/26/22 12/26/22 Unknown History dronabinol 2.5 mg capsule 2.5 mg PO BID 12/26/22 12/26/22 Unknown History ergocalciferol (vitamin D2) 1,250 1,250 mcg PO QWEEK 12/26/22 12/26/22 Unknown History mcg (50,000 unit) capsule fenofibrate nanocrystallized 48 mg 48 mg PO DAILY 12/26/22 12/26/22 Unknown History tablet ferrous sulfate 325 mg (65 mg 325 mg PO DAILY 12/26/22 12/26/22 Unknown History iron) tablet furosemide 40 mg tablet 40 mg PO BID 12/26/22 12/26/22 Unknown History ipratropium 0.5 mg-albuterol 3 mg 3 ml inhalation Q4H PRN Wheezing 12/26/22 12/26/22 Unknown History (2.5 mg base)/3 mL nebulization soln lidocaine 5 % topical patch 1 patch topical DAILY 12/26/22 12/26/22 Unknown History olanzapine 2.5 mg tablet 2.5 mg PO DAILY 12/26/22 12/26/22 Unknown History pantoprazole 40 mg tablet,delayed 40 mg PO DAILY 12/26/22 12/26/22 Unknown History release sucralfate 1 gram tablet 1 g PO QID 12/26/22 12/26/22 Unknown History trazodone 50 mg tablet 50 mg PO BEDTIME 12/26/22 12/26/22 Unknown History Physical Exam Vital Signs: Vital Signs: Last Vital Signs Pulse 59 12/26/22 10:43 Resp 12 12/26/22 10:43 BP 134/45 L 12/26/22 10:43 Pulse Ox 97 12/26/22 10:43 O2 Del Method Room Air 12/26/22 10:43 BMI result Body Mass Index 24.6 Const: General: no acute distress, ill appearing and other (pallor) Nutritional Appearance: average body habitus Orientation/consciousness: patient oriented x3 HEENT: Head: Yes normal to inspection Ears: hearing grossly normal bilaterally Mouth: Normal oral and palatal mucosa present Eyes: Sclerae: sclerae normal Pupils: Equal, round and reactive pupils present Neck: Neck: Yes normal visual inspection Chest: Chest palpation & inspection: normal inspection of the chest Resp: Effort & Inspection: normal respiratory effort Auscultation: clear to auscultation bilaterally Cardio: Palpation: normal PMI Rate: regular rate Rhythm: regular rhythm Heart sounds: S1 normal heart sound present, S2 normal heart sound present and no murmurs GI: Palpation (GI): Soft to palpation, nontender and No hepatosplenomegaly present Auscultation: normal bowel sounds Rectal Exam - Female: deferred Skin: General skin exam: no rashes or lesions noted Neuro: General: patient oriented x3, gait normal and moves all extremities Cranial nerves: Yes Equal, round and reactive pupils present Psych: Appearance: grossly normal Mental Status: mental status grossly normal Results Labs 12/26/22 09:18 12/26/22 09:18 Labs: Short CBC 12/26/22 Range/Units 09:18 WBC 9.3 (4.8-10.8) X10*3/uL Hgb 7.1 L (12.0-16.0) g/dl Hct 22.4 L (37.0-47.0) % Plt Count 267 (160-400) X10*3/uL BMP 12/26/22 09:18 Sodium 134 L Potassium 4.1 Chloride 102 Carbon Dioxide 25 BUN 49 H Creatinine 0.98 Calcium 8.0 L Liver Function 12/26/22 Range/Units 09:18 Total Bilirubin 0.2 (0.0-1.0) mg/dL Direct Bilirubin < 0.2 (0.0-0.5) mg/dL AST 22 (5-31) U/L ALT 51 H (0-31) U/L Alkaline Phosphatase 155 H (39-117) U/L Albumin 1.8 L (3.5-5.0) g/dL Urine 12/26/22 Range/Units 12:28 Urine Color Yellow Urine Appearance Clear Urine pH 5.5 (5.0-9.0) Ur Specific [place] 1.010 (1.005-1.025) Urine Protein 30 (1+) H (Neg-Trace) mg/dL Urine Glucose (UA) Negative (Negative) mg/dL Assessment and Plan (1) Acute blood loss anemia: Status: Resolved (2) Gynecologic cancer: Status: Inactive Plan 77 YF with DM 2 on insulin, CKD, anemia of chronic disease, left lower extremity, DVT on Eliquis, CHF, HTN, HLD, COPD, muscle wasting and atrophy admitted to [facility] with altered mental status related to hypoglycemia.?Labs showed acute on chronic anemia and heme positive stools without overt GI bleeding Pt was on Eliquis which was held on arrival to the ER. Of note, pt was hospitalized at [facility] 11/01 to 11/09/22 with LL Ext DVT and started on heparin and switched to apixaban Pt was noted to have KETAN without acute bleeding - has been transfused 5 U PRBCs 11/08/22 Pt had an EGD which showed duodenal erythema. Colon showed moderate diverticulosis without bleeding CT scan showed multiple pelvic masses with colon involvement - anemia and heme Positive stools can be due to colon involvement with pelvic adenoca. Pt was recently diagnosed with high-grade adenocarcinoma of gynecological origin and it is unclear at present if she is a candidate for chemotherapy RECOMMENDATIONS: 1. Monitor H&H daily and transfuse prn. 2. Agree with PO Omeprazole and sucralfate 3. If pt has overt GI bleeding, EGD can be scheduled after pt has been off Eliquis for 48 hrs. Time Spent With Patient Time: Total time managing care of this patient today ____ minutes. Procedures Date of Service Date of Service: 01/23/23
--- NOTE | 2022-12-26 15:01 | P.CONGS_ITS ---
History of Present Illness Consult details Consult date: 12/26/22 Reason for consult: other (DVT) Narrative: Very pleasant 77-year-old female presents for evaluation regarding left lower extremity DVT. She had discovered this DVT and was subsequently admitted to [facility]. At that time it was discovered that she has high-grade adenocarcinoma of gynecologic origin. For the DVT at that time she was started on Eliquis. She had been transferred to a facility for strength in rehab in order to be a candidate for chemotherapy. In the facility she was found to be weak and hypoglycemic in subsequently transferred over [facility]. Upon workup she was noted to be anemic and had a hemoglobin as low as 6.8. She now presents to us for evaluation of her DVT Review of Systems Constitutional: Constitutional: Reports as per HPI ENT: Reports system reviewed and no additional complaints, except as documented Cardiovascular: Cardiovascular: Denies chest pain, Denies chest pain at rest and Denies chest pain with activity Respiratory: Respiratory: Denies chest congestion and Denies cough Gastrointestinal: Gastrointestinal: Reports no additional gastrointestinal complaints Musculoskeletal: Musculoskeletal: Denies abnormal gait Integumentary/Breasts: Skin/Breast: Reports pruritus and Denies wounds Neurologic: Reports system reviewed and no additional complaints, except as documented and Denies abnormal gait Psychiatric: Psychiatric: Denies no additional psychiatric complaints PMFSH Social History Social History Advance Directives: No Advance Directives Information Provided: Yes Meds Allergies Allergy/AdvReac Type Severity Reaction Status Date / Time erythromycin base Allergy Unknown unknown Verified 12/26/22 08:36 [From Erythrocin] Active Medications: Current Medications Acetaminophen (Acetaminophen 325 Mg Tablet) 650 mg PO Q6H PRN PRN Reason: Pain, Mild (Pain Scale 1-3) Albuterol Sulfate (Albuterol Sulfate 90 Mcg 8 Gm Inhaler) 2 puff INHALE Q6H PRN PRN Reason: Wheezing Albuterol/Ipratropium (Albuterol/Iprat 2.5/0.5mg 3 Ml Ampul.Neb) 3 ml INHALE Q4H PRN PRN Reason: Wheezing Atorvastatin Calcium (Atorvastatin Calcium 20 Mg Tablet) 20 mg PO DAILY [facility] Carvedilol (Carvedilol 12.5 Mg Tablet) 12.5 mg PO BID [facility]; Protocol Cyanocobalamin (Cyanocobalamin (Vitamin B-12) 1,000 Mcg Tablet) 1,000 mcg PO DAILY [facility] Docusate Sodium (Docusate Sodium 100 Mg Capsule) 100 mg PO BID [facility] Ergocalciferol (Ergocalciferol (Vitamin D2) 1,250 Mcg Capsule) 1,250 mcg PO Q7D [facility] Ferrous Sulfate (Ferrous Sulfate 324 Mg Tablet.) 324 mg PO DAILY [facility] Furosemide (Furosemide 40 Mg Tablet) 40 mg PO BID [facility]; Protocol Magnesium Sulfate (Magnesium Sulfate/H2o) 2 gm in 50 mls @ 25 mls/hr IV ONCE ONE Stop: 12/26/22 15:34 Last Admin: 12/26/22 14:31 Dose: 25 mls/hr Sodium Chloride (Ns) 1,000 mls @ 100 mls/hr IVCONT .Q10H [facility] Metoclopramide HCl (Metoclopramide Hcl 5 Mg Tablet) 5 mg PO TID PRN PRN Reason: nausea and vomiting Olanzapine (Olanzapine 2.5 Mg Tablet) 2.5 mg PO DAILY [facility] Omeprazole (Omeprazole 20 Mg Capsule.) 20 mg PO DAILY@0630 [facility] Sodium Chloride (0.9 % Sodium Chloride Flush 3 Ml Syringe) 3 ml IVFLUSH QSHIFT [facility] Sucralfate (Sucralfate 1 Gm Tablet) 1 gm PO QID [facility] Trazodone HCl (Trazodone Hcl 50 Mg Tablet) 50 mg PO BEDTIME [facility] Home Medications Medication Instructions Recorded Confirmed Last Taken Type acetaminophen 325 mg tablet 650 mg PO Q4H PRN Pain 12/26/22 12/26/22 Unknown History albuterol sulfate 90 mcg/actuation 2 puff inhalation Q6H PRN Wheezing 12/26/22 12/26/22 Unknown History aerosol inhaler amlodipine 10 mg tablet 10 mg PO DAILY 12/26/22 12/26/22 Unknown History apixaban 2.5 mg tablet (Eliquis) 2.5 mg PO BID 12/26/22 12/26/22 Unknown History ascorbic acid (vitamin C) 500 mg 500 mg PO DAILY 12/26/22 12/26/22 Unknown History tablet atorvastatin 20 mg tablet 20 mg PO DAILY 12/26/22 12/26/22 Unknown History carvedilol 12.5 mg tablet 12.5 mg PO BID 12/26/22 12/26/22 Unknown History cyanocobalamin (vitamin B-12) 1,000 mcg PO DAILY 12/26/22 12/26/22 Unknown History 1,000 mcg tablet dexamethasone 4 mg tablet 4 mg PO DAILY 12/26/22 12/26/22 Unknown History docusate sodium 100 mg capsule 100 mg PO BID 12/26/22 12/26/22 Unknown History dronabinol 2.5 mg capsule 2.5 mg PO BID 12/26/22 12/26/22 Unknown History ergocalciferol (vitamin D2) 1,250 1,250 mcg PO QWEEK 12/26/22 12/26/22 Unknown History mcg (50,000 unit) capsule fenofibrate nanocrystallized 48 mg 48 mg PO DAILY 12/26/22 12/26/22 Unknown History tablet ferrous sulfate 325 mg (65 mg 325 mg PO DAILY 12/26/22 12/26/22 Unknown History iron) tablet furosemide 40 mg tablet 40 mg PO BID 12/26/22 12/26/22 Unknown History insulin glargine 100 unit/mL (3 15 unit subcut BEDTIME 12/26/22 12/26/22 Unknown History mL) subcutaneous pen insulin lispro 100 unit/mL 1 sliding scale dose subcut 12/26/22 12/26/22 Unknown History subcutaneous pen (Humalog KwikPen USEASDIRECTD (U-100) Insulin) ipratropium 0.5 mg-albuterol 3 mg 3 ml inhalation Q4H PRN Wheezing 12/26/22 12/26/22 Unknown History (2.5 mg base)/3 mL nebulization soln lidocaine 5 % topical patch 1 patch topical DAILY 12/26/22 12/26/22 Unknown History metoclopramide HCl 5 mg tablet 5 mg PO QID 12/26/22 12/26/22 Unknown History (Reglan) olanzapine 2.5 mg tablet 2.5 mg PO DAILY 12/26/22 12/26/22 Unknown History pantoprazole 40 mg tablet,delayed 40 mg PO DAILY 12/26/22 12/26/22 Unknown History release sucralfate 1 gram tablet 1 g PO QID 12/26/22 12/26/22 Unknown History trazodone 50 mg tablet 50 mg PO BEDTIME 12/26/22 12/26/22 Unknown History Physical Exam Vital Signs: Vital Signs: Last Vital Signs Temp 97.7 F 12/26/22 14:43 Pulse 61 12/26/22 14:43 Resp 19 12/26/22 14:43 BP 146/53 H 12/26/22 14:43 Pulse Ox 98 12/26/22 14:43 O2 Del Method Room Air, Nasal C annula 12/26/22 14:43 BMI result Body Mass Index 24.6 Const: General: cooperative, healthy appearing and comfortable Orientation/consciousness: oriented to person, oriented to place and oriented to time Neck: Carotids: no bruits Chest: Chest palpation & inspection: normal inspection of the chest and normal palpation of entire chest wall Resp: Effort & Inspection: normal respiratory effort and able to speak in complete sentences Cardio: Rate: regular rate Heart sounds: S1 normal heart sound present and S2 normal heart sound present Peripheral pulses: Peripheral pulses 2+ throughout GI: Inspection: Yes normal to inspection Skin: Other: +2 edema, left leg General skin exam: dry skin Neuro: General: oriented to person, oriented to place and oriented to time Extrem: Right lower extremity: full ROM, normal capillary refill and edema Left lower extremity: full ROM, normal capillary refill and edema Psych: Mental Status: mental status grossly normal Results Labs 12/26/22 09:18 12/26/22 09:18 Labs: Abnormal lab results 12/26/22 12/26/22 12/26/22 Range/Units 08:31 08:55 09:18 RBC 2.51 L (4.20-5.50) X10*6/uL Hgb 7.1 L (12.0-16.0) g/dl Hct 22.4 L (37.0-47.0) % RDW 19.3 H (11.0-16.0) % Immature Gran % (Auto) 1.0 H (0.0-0.4) % Neut % (Auto) 77.4 H (45-73) % Lymph % (Auto) 14.1 L (20-40) % Abs Immat Gran (auto) 0.09 H (0.00-0.03) X10*3/uL Percent Retic 3.1 H (0.5-1.8) % Retic Hgb Equivalent 26.3 L (30.0-35.0) pg PT (10.0-13.1) SEC INR (0.9-1.1) Sodium (135-145) mmol/L Anion Gap (12-20) BUN (9-16) mg/dL POC Glucose 48 L* 37 L* (60-115) mg/dL Random Glucose (60-115) mg/dL Calcium (8.4-10.2) mg/dL Magnesium (1.6-2.6) mg/dL TIBC (228-428) mcg/dL ALT (0-31) U/L Alkaline Phosphatase (39-117) U/L B-Natriuretic Peptide (<100) pg/mL Total Protein (6.5-8.0) g/dL Albumin (3.5-5.0) g/dL Urine Protein (Neg-Trace) mg/dL Urine Blood (Negative) Ur Leukocyte Esterase (Negative) Urine WBC (0-5) /HPF Crossmatch 12/26/22 12/26/22 12/26/22 Range/Units 09:18 09:18 09:18 RBC (4.20-5.50) X10*6/uL Hgb (12.0-16.0) g/dl Hct (37.0-47.0) % RDW (11.0-16.0) % Immature Gran % (Auto) (0.0-0.4) % Neut % (Auto) (45-73) % Lymph % (Auto) (20-40) % Abs Immat Gran (auto) (0.00-0.03) X10*3/uL Percent Retic (0.5-1.8) % Retic Hgb Equivalent (30.0-35.0) pg PT (10.0-13.1) SEC INR (0.9-1.1) Sodium 134 L (135-145) mmol/L Anion Gap 11 L (12-20) BUN 49 H (9-16) mg/dL POC Glucose (60-115) mg/dL Random Glucose 176 H (60-115) mg/dL Calcium 8.0 L (8.4-10.2) mg/dL Magnesium 1.2 L* (1.6-2.6) mg/dL TIBC 144 L (228-428) mcg/dL ALT 51 H (0-31) U/L Alkaline Phosphatase 155 H (39-117) U/L B-Natriuretic Peptide 753 H (<100) pg/mL Total Protein 4.6 L (6.5-8.0) g/dL Albumin 1.8 L (3.5-5.0) g/dL Urine Protein (Neg-Trace) mg/dL Urine Blood (Negative) Ur Leukocyte Esterase (Negative) Urine WBC (0-5) /HPF Crossmatch See Detail 12/26/22 12/26/22 12/26/22 Range/Units 09:27 10:52 12:28 RBC (4.20-5.50) X10*6/uL Hgb (12.0-16.0) g/dl Hct (37.0-47.0) % RDW (11.0-16.0) % Immature Gran % (Auto) (0.0-0.4) % Neut % (Auto) (45-73) % Lymph % (Auto) (20-40) % Abs Immat Gran (auto) (0.00-0.03) X10*3/uL Percent Retic (0.5-1.8) % Retic Hgb Equivalent (30.0-35.0) pg PT 14.7 H (10.0-13.1) SEC INR 1.3 H (0.9-1.1) Sodium (135-145) mmol/L Anion Gap (12-20) BUN (9-16) mg/dL POC Glucose 127 H (60-115) mg/dL Random Glucose (60-115) mg/dL Calcium (8.4-10.2) mg/dL Magnesium (1.6-2.6) mg/dL TIBC (228-428) mcg/dL ALT (0-31) U/L Alkaline Phosphatase (39-117) U/L B-Natriuretic Peptide (<100) pg/mL Total Protein (6.5-8.0) g/dL Albumin (3.5-5.0) g/dL Urine Protein 30 (1+) H (Neg-Trace) mg/dL Urine Blood Trace H (Negative) Ur Leukocyte Esterase Moderate (2+) H (Negative) Urine WBC 21-50 H (0-5) /HPF Crossmatch 12/26/22 Range/Units 12:29 RBC (4.20-5.50) X10*6/uL Hgb (12.0-16.0) g/dl Hct (37.0-47.0) % RDW (11.0-16.0) % Immature Gran % (Auto) (0.0-0.4) % Neut % (Auto) (45-73) % Lymph % (Auto) (20-40) % Abs Immat Gran (auto) (0.00-0.03) X10*3/uL Percent Retic (0.5-1.8) % Retic Hgb Equivalent (30.0-35.0) pg PT (10.0-13.1) SEC INR (0.9-1.1) Sodium (135-145) mmol/L Anion Gap (12-20) BUN (9-16) mg/dL POC Glucose 126 H (60-115) mg/dL Random Glucose (60-115) mg/dL Calcium (8.4-10.2) mg/dL Magnesium (1.6-2.6) mg/dL TIBC (228-428) mcg/dL ALT (0-31) U/L Alkaline Phosphatase (39-117) U/L B-Natriuretic Peptide (<100) pg/mL Total Protein (6.5-8.0) g/dL Albumin (3.5-5.0) g/dL Urine Protein (Neg-Trace) mg/dL Urine Blood (Negative) Ur Leukocyte Esterase (Negative) Urine WBC (0-5) /HPF Crossmatch Short CBC 12/26/22 Range/Units 09:18 WBC 9.3 (4.8-10.8) X10*3/uL Hgb 7.1 L (12.0-16.0) g/dl Hct 22.4 L (37.0-47.0) % Plt Count 267 (160-400) X10*3/uL BMP 12/26/22 09:18 Sodium 134 L Potassium 4.1 Chloride 102 Carbon Dioxide 25 BUN 49 H Creatinine 0.98 Calcium 8.0 L Liver Function 12/26/22 Range/Units 09:18 Total Bilirubin 0.2 (0.0-1.0) mg/dL Direct Bilirubin < 0.2 (0.0-0.5) mg/dL AST 22 (5-31) U/L ALT 51 H (0-31) U/L Alkaline Phosphatase 155 H (39-117) U/L Albumin 1.8 L (3.5-5.0) g/dL Urine 12/26/22 Range/Units 12:28 Urine Color Yellow Urine Appearance Clear Urine pH 5.5 (5.0-9.0) Ur Specific [place] 1.010 (1.005-1.025) Urine Protein 30 (1+) H (Neg-Trace) mg/dL Urine Glucose (UA) Negative (Negative) mg/dL All other labs normal. Assessment and Plan (1) DVT (deep venous thrombosis): Status: Acute Plan Patient has DVT with failure of anticoagulation. The patient will require an inferior vena cava filter placement. This has been discussed in detail with the patient along with risks, benefits, and complications. This includes but is not limited to bleeding, infection, heart attack, need for emergent surgical repair, limb ischemia, blood vessel damage, bleeding, puncture, kidney injury, bruising, allergic reaction, and skin reaction. The patient demonstrates a clear understanding. We will schedule for tomorrow morning. Thank you for allowing us to assist in this patient's care. Time Spent With Patient Time: Total time managing care of this patient today ____ minutes. Procedures Date of Service Date of Service: 12/26/22
[2022-12-26 16:05] LABS: Glucose, Whole Blood 105 mg/dL (60-115)
[2022-12-26] MEDS: Sucralfate 1 GM TABLET PO ×2 (17:06→19:59)
[2022-12-26] MEDS: Docusate Sodium 100 MG CAPSULE PO (19:59)
[2022-12-26] MEDS: 0.9 % Sodium Chloride Flush 3 ML SYRINGE IVFLUSH (19:59)
[2022-12-26] MEDS: Furosemide 40 MG TABLET PO (19:59)
[2022-12-26] MEDS: carvediloL 12.5 MG TABLET PO (19:59)
[2022-12-26] MEDS: traZODone HCL 50 MG TABLET PO (19:59)
[2022-12-26 20:43] LABS: Glucose, Whole Blood 160 mg/dL (60-115)
[2022-12-27] VITALS (12 sets, daily range): BP systolic 132–177; BP diastolic 56–72; PULSE 59–80; RESP 16–20; TEMP 36.5–37.1; O2SAT 96–98
--- NOTE | 2022-12-27 | ECG_ITS ---
Test Reason : CP Blood Pressure : / mmHG Vent. Rate : 072 BPM Atrial Rate : 072 BPM P-R Int : 138 ms QRS Dur : 090 ms QT Int : 372 ms P-R-T Axes : 063 077 038 degrees QTc Int : 407 ms Normal sinus rhythm Nonspecific ST and T wave abnormality Abnormal ECG When compared to the previous EKG of No significant changes seen Referred By: Soila Smith Electronically Signed By:RAYMOND AVALOS MD
[2022-12-27] MEDS: 0.9 % Sodium Chloride 1,000 ML 100 ML IVCONT (03:19)
[2022-12-27 03:35] LABS: Hemoglobin 10.3 g/dl (12.0-16.0); Mean Corpuscular HGB Conc 32.2 g/dl (31.0-35.0); Mean Corpuscular Hemoglobin 28.2 pg (27.0-33.0); Mean Corpuscular Volume 87.7 fL (80.0-98.0); Mean Platelet Volume 10.1 fL (9.4-12.3); Platelet Count 287 X10*3/uL (160-400); Red Blood Count 3.65 X10*6/uL (4.20-5.50); White Blood Count 10.2 X10*3/uL (4.8-10.8)
[2022-12-27 03:49] LABS: Anion Gap 13 (12-20); Blood Urea Nitrogen 45 mg/dL (9-16); Calcium 8.3 mg/dL (8.4-10.2); Carbon Dioxide 23 mmol/L (22-29); Chloride 102 mmol/L (96-108); Estimated Glomerular Filt Rate 57; Glucose Random 155 mg/dL (60-115); Magnesium 1.8 mg/dL (1.6-2.6); Sodium 133 mmol/L (135-145)
[2022-12-27 04:09] LABS: Ferritin 166 ng/mL (10-250)
[2022-12-27 07:33] LABS: Glucose, Whole Blood 140 mg/dL (60-115)
--- NOTE | 2022-12-27 08:55 | MHC.CM.PN ---
CM ATTEMPTED TO MEET WITH PT WHO IS OFF THE UNIT CM TO REVISIT
--- NOTE | 2022-12-27 09:52 | W.PM.OPN ---
Operative Note Operative Note Date of Service: 12/27/22 Narrative: Angiogram report from [facility] Preoperative diagnosis: Deep venous thrombosis Postoperative diagnosis: Same Procedure: 1. Ultrasound-guided right common femoral vein access 2. Inferior vena cavogram 3. Placement of inferior vena cava filter Surgeon:William Montgomery M.D., FACS, RPVI Nuclear Pharmacist:None Anesthesia: Local with moderate conscious sedation. Total intraservice moderate sedation time was 22 minutes. I monitored the patient's level of consciousness and physiologic status continuously throughout the procedure. Specimens:none Drains:none Estimated blood loss: Less than 10 ml Implant: [place] retrievable vena cava filter Indications: 77-year-old female with known history of DVT. She was placed on anticoagulation and subsequently had a bleed. Had a decreased hemoglobin on presentation. He was felt that it was not safe to resume anticoagulation. A decision was made to place an IVC filter. The patient has signed the informed consent after reviewing risks, complications, benefits, and alternatives previously discussed with the patient. The patient was given the opportunity to ask any additional questions or voice any concerns. All questions were answered to the patient's satisfaction. Procedure in detail: Patient was brought to the angiography suite prior to which a time-out was called for patient identification and site verification. Bilateral groins were prepped and draped in the standard surgical fashion. Under ultrasound guidance right common femoral vein was punctured with micro puncture needle and wire. Subsequently a precision 5 [place] sheath was then placed. Bentson wire was advanced to the level of the vena cava. Vena cavogram was then undertaken through the 5 [place] sheath. This was a baseline study to define the variant anatomy, caval size, location and number of renal veins, and to evaluate for ileo caval thrombus. Under direct fluoroscopic guidance we exchanged out the 5 [place] sheath for the [place] in [place] sheath. We brought the filter into position. This was then subsequently deployed. The inner cannula was then removed. Through the sheath a hand injection was performed to assess filter position. Once this was accomplished the sheath was then removed, and hemostasis was achieved with 10 minutes of direct compression. No immediate complications occurred and the patient was returned to the recovery suite with no complications Interpretation of films: 1. Ultrasound demonstrates appropriate femoral vein puncture. Image of which was saved. 2. There was no ileal caval thrombus noted 3. There are single renal veins bilaterally and the IVC is normal in caliber. There is no aberrant anatomy. 4. The filter was deployed appropriately and position below the lowest renal vein. Conclusion: 1. Successful placement of Bard Cecilia IVC filter 2. Anticoagulation status: Resume regular anticoagulation as indicated 4 hours post filter placement This note is constructed using voice recognition software. While every effort has been made to ensure accuracy, retail business development manager errors may have been included. Thank you for allowing me to participate in the care of your patient. Yours sincerely, William Montgomery MD, FACS, R.P.V.I.
[2022-12-27 10:28] LABS: Glucose, Whole Blood 160 mg/dL (60-115)
[2022-12-27] MEDS: Ferrous Sulfate 324 MG TABLET.DR PO (10:28)
[2022-12-27] MEDS: Sucralfate 1 GM TABLET PO ×4 (10:28→21:58)
[2022-12-27] MEDS: Docusate Sodium 100 MG CAPSULE PO ×2 (10:28→21:58)
[2022-12-27] MEDS: Furosemide 40 MG TABLET PO ×2 (10:28→21:58)
[2022-12-27] MEDS: OLANZapine 2.5 MG TABLET PO (10:28)
[2022-12-27] MEDS: carvediloL 12.5 MG TABLET PO ×2 (10:28→21:58)
[2022-12-27] MEDS: Atorvastatin Calcium 20 MG TABLET PO (10:29)
[2022-12-27] MEDS: Cyanocobalamin (Vitamin B-12) 1,000 MCG TABLET 1000 MCG PO (10:29)
--- NOTE | 2022-12-27 10:45 | MHC.CM.PN ---
PT REPORTS SHE LIVES WITH HER BUT WAS AT [facility] FOR STR [employer] SHE SAYS SHE WAS THERE FOR ABOUT A WEEK, AND PRIOR TO THAT, SHE WAS AT [facility] FOR TWO WEEKS PT REPORTS SHE WAS USING A WALKER, BUT HAS NOT BEEN ABLE TO AMBULATE RECENTLY SHE SAYS HER PCP IS FATOU Collins COPY OF HER HCP REQUESTED IMM DELIVERED PT REPORTS SHE DOES NOT WANT TO RETURN TO [facility] SHE REQUESTED A REFERRAL TO [place] SENT PT WILL NEED A PHYSICAL THERAPY EVAL TO SKILL BACK INTO STR
--- NOTE | 2022-12-27 14:25 | HO.PM.IMPN ---
Subjective Subjective Date of Service: 12/28/22 Review of Systems patient underwent IVC filter placement by Dr. Montgomery due to recent history of left lower extremity DVT, Eliquis held due to anemia and heme-positive stools, patient feeling better this morning denies pain, no nausea, no vomiting, blood sugars stable, no recurrent episode of hypoglycemia, feel weak. Constitutional all other system reviewed and negative Physical Exam Vital Signs: Vital Signs: Last Vital Signs Temp 97.8 F 12/27/22 11:25 Pulse 59 12/27/22 11:25 Resp 20 12/27/22 11:25 BP 167/72 H 12/27/22 11:25 Pulse Ox 97 12/27/22 11:25 O2 Del Method Room Air 12/27/22 11:25 BMI result Body Mass Index 24.6 Const: Other: General awake alert x3,resting comfortably in no acute distress. anicteric sclera Neck supple no JVD. CVS regular rate rhythm, Respiratory lungs clear to auscultation, no respiratory distress, no wheeze, no rhonchi. Gastrointestinal abdomen soft, bowel sounds audible, diffuse lower abdominal discomfort with palpation, no guarding , no rigidity. Extremities ch. left leg bigger than right , mild pitting edema. Neuro nonfocal , decreased strength lower extremities left greater than right. Skin no rash psych appropriate affect Objective Data Active Medications Acetaminophen (Acetaminophen 325 Mg Tablet) 650 mg PO Q6H PRN PRN Reason: Pain, Mild (Pain Scale 1-3) Albuterol Sulfate (Albuterol Sulfate 90 Mcg 8 Gm Inhaler) 2 puff INHALE Q6H PRN PRN Reason: Wheezing Albuterol/Ipratropium (Albuterol/Iprat 2.5/0.5mg 3 Ml Ampul.Neb) 3 ml INHALE Q4H PRN PRN Reason: Wheezing Atorvastatin Calcium (Atorvastatin Calcium 20 Mg Tablet) 20 mg PO DAILY [facility] Last Admin: 12/27/22 10:29 Dose: 20 mg Documented By: JENNIFER Carvedilol (Carvedilol 12.5 Mg Tablet) 12.5 mg PO BID [facility]; Protocol Last Admin: 12/27/22 10:28 Dose: 12.5 mg Documented By: JENNIFER Cyanocobalamin (Cyanocobalamin (Vitamin B-12) 1,000 Mcg Tablet) 1,000 mcg PO DAILY [facility] Last Admin: 12/27/22 10:29 Dose: 1,000 mcg Documented By: JENNIFER Docusate Sodium (Docusate Sodium 100 Mg Capsule) 100 mg PO BID [facility] Last Admin: 12/27/22 10:28 Dose: 100 mg Documented By: JENNIFER Ergocalciferol (Ergocalciferol (Vitamin D2) 1,250 Mcg Capsule) 1,250 mcg PO Q7D [facility] Ferrous Sulfate (Ferrous Sulfate 324 Mg Tablet.) 324 mg PO DAILY [facility] Last Admin: 12/27/22 10:28 Dose: 324 mg Documented By: JENNIFER Furosemide (Furosemide 40 Mg Tablet) 40 mg PO BID [facility]; Protocol Last Admin: 12/27/22 10:28 Dose: 40 mg Documented By: JENNIFER Sodium Chloride (Ns) 1,000 mls @ 100 mls/hr IVCONT .Q10H [facility] Last Infusion: 12/27/22 10:19 Dose: 100 mls/hr Documented By: JENNIFER Metoclopramide HCl (Metoclopramide Hcl 5 Mg Tablet) 5 mg PO TID PRN PRN Reason: nausea and vomiting Olanzapine (Olanzapine 2.5 Mg Tablet) 2.5 mg PO DAILY [facility] Last Admin: 12/27/22 10:28 Dose: 2.5 mg Documented By: JENNIFER Omeprazole (Omeprazole 20 Mg Capsule.) 20 mg PO DAILY@0630 [facility] Last Admin: 12/27/22 05:43 Dose: Not Given Documented By: YULISA Non-Admin Reason: Patient Asleep Sodium Chloride (0.9 % Sodium Chloride Flush 3 Ml Syringe) 3 ml IVFLUSH QSHIFT [facility] Last Admin: 12/27/22 09:04 Dose: Not Given Documented By: JENNIFER Non-Admin Reason: Off Unit: Surgery Sucralfate (Sucralfate 1 Gm Tablet) 1 gm PO QID [facility] Last Admin: 12/27/22 13:36 Dose: 1 gm Documented By: JENNIFER Trazodone HCl (Trazodone Hcl 50 Mg Tablet) 50 mg PO BEDTIME [facility] Last Admin: 12/26/22 19:59 Dose: 50 mg Documented By: ANTOIC Labs 12/27/22 03:26 12/27/22 03:26 Labs: Laboratory Results - last 24 hr 12/26/22 12/26/22 12/26/22 09:18 16:02 20:39 MCV MCH MCHC RDW Plt Count MPV Absolute Nucleated RBC Nucleated RBC % (auto) Anion Gap Estim Creat Clear Calc Estimated GFR POC Glucose 105 160 H Random Glucose Calcium Magnesium Ferritin Blood Type O Positive Antibody Screen NEGATIVE Crossmatch See Detail 12/27/22 12/27/22 12/27/22 03:26 03:26 03:26 MCV 87.7 MCH 28.2 MCHC 32.2 RDW 18.0 H Plt Count 287 MPV 10.1 Absolute Nucleated RBC 0.000 Nucleated RBC % (auto) 0.0 Anion Gap 13 Estim Creat Clear Calc 46.0 Estimated GFR 57 POC Glucose Random Glucose 155 H Calcium 8.3 L Magnesium 1.8 Ferritin 166 Blood Type Antibody Screen Crossmatch 12/27/22 12/27/22 07:23 10:23 MCV MCH MCHC RDW Plt Count MPV Absolute Nucleated RBC Nucleated RBC % (auto) Anion Gap Estim Creat Clear Calc Estimated GFR POC Glucose 140 H 160 H Random Glucose Calcium Magnesium Ferritin Blood Type Antibody Screen Crossmatch Microbiology Microbiology Results: Microbiology 12/26/22 Unknown Urine Culture - Final Urine clean catch - Urine son top Assessment and Plan (1) DVT (deep venous thrombosis): Status: Acute (2) Acute blood loss anemia: Status: Acute (3) Hypoglycemia: Status: Acute (4) Gynecologic cancer: Status: Acute Plan 77-year-old female with a PMH significant for HTN, HLD, insulin-dependent diabetes type 2, CKD, DVT, COPD, anemia, anxiety, AFib on Eliquis, HFrEF, and 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 ? Pt will be admitted to the hospital for treatment of?altered mental status secondary to hypoglycemia, hypomagnesemia, and anemia. Hypoglycemia POC as low as 37 in the ED, symptomatic with lethargy, confusion, blood sugar improved after D10 POC glucose now 126, patient's mentation back to baseline Will hold all insulin for now Encourage p.o. intake follow hemoglobin A1c and blood sugar closely and resume oral hypoglycemics Acute on chronic normocytic anemia Patient's H&H 7.1/22.4 Likely multifactorial:? secondary to poor p.o. intake, metastatic malignancy, ?mild gastritis d/t dexamethasone use received 5 blood transfusions while at [facility] during last admission GI consult at [facility] revealed un remarkable endoscopy and colonoscopy Stool positive for occult blood, though no melena, hematochezia s/p 1 unit of PRBCs,hct improved follow cbc Will hold Eliquis seen by GI but under good repeat endoscopy if noted to have recurrent bleed or drop in hematocrit Left leg DVT Pt developed a DVT during PT at [facility] in early October, was started on Eliquis Eliquis held d/t anemia and stool positive for occult blood IVC placed Adenocarcinoma of gynecological origin, high-grade CT of abdomen at [facility] showed multiple masses concerning for malignancy with gynecological origin of potential involvement of colon CT needle-guided biopsy on right pelvic mesenteric mass on 12/05/2022 showed adenocarcinoma of gynecological origin, high-grade Patient not a candidate for chemotherapy d/t weakness and immobility Palliative care was discussed, but patient wished to go to short-term rehab for PT and strength training in the attempt to become a candidate for chemotherapy Patient should follow-up outpatient with Oncology and [facility] Hypomagnesemia magnesium 1.2 at time presentation, repleted magnesium improved to 1.8 AFib on Eliquis Patient apparently noted to have been in AFib at previous hospitalization at [facility] EKG now shows sinus rythm Hold Eliquis due to anemia,Continue carvedilol Monitor on telemetry Hx of recurrent pleural effusion Patient received thoracocentesis and chest tube placement on 12/02 at [facility],Pleural fluid cytology was negative for malignancy Current CXR shows moderate to large right pleural effusion Patient asymptomatic, satting at 97% O2 on RA Continue furosemide, monitor respiratory status HFrEF Patient with multiple echoes and [facility], EF noted to be 45-50% with wall motion abnormalities and grade 2 moderate diastolic dysfunction Nuclear stress test at [facility] showed scar with minimal surrounding reversible ischemia BNP elevated at 753, baseline unknown, patient asymptomatic with trace pitting edema bilaterally, worse on left leg Continue furosemide Low-salt diet Hypoalbuminemia Likely secondary to poor p.o. intake Glucerna t.i.d. COPD Not in acute exacerbation, Continue home inhalers HTN elevated BP, resume amlodipine HLD Continue statin Hold fenofibrate, is non formulary DNR/DNI DVT Prophylaxis: Pnematic boots Pt. will require continued inpatient hospitalization for close monitoring of anemia,and hypoglycemia. Time Spent With Patient Time: Total time managing care of this patient today ____ minutes. Quality Stroke Does the patient have a stroke diagnosis?: No VTE Prior VTE?: Yes Approximate Date of Prior VTE: 09/11/22 VTE Risk Level:: Medical - moderate - high VTE Device Contraindication: N/A - Device Ordered VTE Drug Contraindication: Treatment Not Indicated
[2022-12-27 15:36] LABS: Glucose, Whole Blood 257 mg/dL (60-115)
[2022-12-27] MEDS: Insulin Lispro 100 UNIT/ML 3 ML VIAL SUBCUT (16:47)
[2022-12-27 20:15] LABS: Glucose, Whole Blood 75 mg/dL (60-115)
[2022-12-27] MEDS: traZODone HCL 50 MG TABLET PO (21:58)
[2022-12-27] MEDS: 0.9 % Sodium Chloride Flush 3 ML SYRINGE IVFLUSH (21:59)
[2022-12-28 03:03] VITALS: BP 149/64; PULSE 70; RESP 17; TEMP 36.6; O2SAT 92
[2022-12-28] MEDS: Omeprazole 20 MG CAPSULE.DR PO (05:40)
[2022-12-28 07:07] VITALS: BP 143/65; PULSE 69; RESP 20; TEMP 36.4; O2SAT 95
[2022-12-28 07:21] LABS: Glucose, Whole Blood 88 mg/dL (60-115)
[2022-12-28] MEDS: Cyanocobalamin (Vitamin B-12) 1,000 MCG TABLET 1000 MCG PO (08:13)
[2022-12-28] MEDS: Furosemide 40 MG TABLET PO ×2 (08:13→22:00)
[2022-12-28] MEDS: carvediloL 12.5 MG TABLET PO ×2 (08:13→22:00)
[2022-12-28] MEDS: Docusate Sodium 100 MG CAPSULE PO ×2 (08:13→22:00)
[2022-12-28] MEDS: Ferrous Sulfate 324 MG TABLET.DR PO (08:13)
[2022-12-28] MEDS: OLANZapine 2.5 MG TABLET PO (08:13)
[2022-12-28] MEDS: Atorvastatin Calcium 20 MG TABLET PO (08:13)
[2022-12-28] MEDS: Sucralfate 1 GM TABLET PO ×4 (08:13→22:00)
[2022-12-28] MEDS: 0.9 % Sodium Chloride Flush 3 ML SYRINGE IVFLUSH ×3 (08:21→22:01)
[2022-12-28 08:37] LABS: Hematocrit 28.2 % (37.0-47.0); Hemoglobin 9.2 g/dl (12.0-16.0); Mean Corpuscular HGB Conc 32.6 g/dl (31.0-35.0); Mean Corpuscular Hemoglobin 28.8 pg (27.0-33.0); Mean Corpuscular Volume 88.1 fL (80.0-98.0); Mean Platelet Volume 9.9 fL (9.4-12.3); Platelet Count 264 X10*3/uL (160-400); Red Cell Distribution Width 18.3 % (11.0-16.0); White Blood Count 10.4 X10*3/uL (4.8-10.8)
[2022-12-28 08:54] LABS: Estimated Average Glucose 123 mg/dL; Hemoglobin A1c % 5.9 %
[2022-12-28 11:44] LABS: Glucose, Whole Blood 171 mg/dL (60-115)
[2022-12-28] MEDS: Insulin Lispro 100 UNIT/ML 3 ML VIAL SUBCUT ×3 (11:51→22:00)
[2022-12-28 12:00] VITALS: BP 138/63; PULSE 75; RESP 20; TEMP 36.9; O2SAT 96
[2022-12-28] MEDS: Acetaminophen 325 MG TABLET 650 MG PO (15:17)
--- NOTE | 2022-12-28 15:34 | MHC.CM.PN ---
PT is recommending STR and Patient has been accepted at her first choice SNF/[facility]. CM spoke with Patient at bedside and CM relayed Patient's c/o stomach pain to MD. Per MD, will consider Patient for dc to SNF/STR tomorrow. CM will follow.
[2022-12-28 16:00] VITALS: BP 138/67; PULSE 81; RESP 18; TEMP 36.3; O2SAT 96
--- NOTE | 2022-12-28 16:07 | P.PNIM_ITS ---
Subjective Subjective Date of Service: 12/28/22 Interval History: offers no acute complaints, but feels she is not ready to return to rehab facility, asked multiple time what is the reason,but patient unable to explain, denies nausea vomiting tolerating diet, no change in lower abdominal discomfort, no other acute events overnight no hematemesis no melena, taking all medications. Review of Systems all other system reviewed and negative. Physical Exam Vital Signs: Vital Signs: Last Vital Signs Temp 98.4 F 12/28/22 12:00 Pulse 75 12/28/22 12:00 Resp 20 12/28/22 12:00 BP 138/63 12/28/22 12:00 Pulse Ox 96 12/28/22 12:00 O2 Del Method Room Air 12/28/22 12:00 BMI result Body Mass Index 24.6 Const: Other: General? awake alert x3,resting comfortably in no acute distress.? anicteric sclera Neck supple no JVD. CVS? regular rate rhythm, Respiratory lungs clear to auscultation, no respiratory distress, no wheeze, no rhonchi. Gastrointestinal abdomen soft, bowel sounds audible, diffuse lower abdominal discomfort with palpation, no guarding , no rigidity. Extremities ch. left leg bigger than right , mild pitting edema. Neuro nonfocal , decreased strength lower extremities left greater than right. Skin no rash psych appropriate affect Objective Data Active Medications Acetaminophen (Acetaminophen 325 Mg Tablet) 650 mg PO Q6H PRN PRN Reason: Pain, Mild (Pain Scale 1-3) Last Admin: 12/28/22 15:17 Dose: 650 mg Documented By: CHESTER Albuterol Sulfate (Albuterol Sulfate 90 Mcg 8 Gm Inhaler) 2 puff INHALE Q6H PRN PRN Reason: Wheezing Albuterol/Ipratropium (Albuterol/Iprat 2.5/0.5mg 3 Ml Ampul.Neb) 3 ml INHALE Q4H PRN PRN Reason: Wheezing Amlodipine Besylate (Amlodipine Besylate 5 Mg Tablet) 5 mg PO DAILY [facility]; Protocol Atorvastatin Calcium (Atorvastatin Calcium 20 Mg Tablet) 20 mg PO DAILY [facility] Last Admin: 12/28/22 08:13 Dose: 20 mg Documented By: CHESTER Carvedilol (Carvedilol 12.5 Mg Tablet) 12.5 mg PO BID [facility]; Protocol Last Admin: 12/28/22 08:13 Dose: 12.5 mg Documented By: CHESTER Cyanocobalamin (Cyanocobalamin (Vitamin B-12) 1,000 Mcg Tablet) 1,000 mcg PO DAILY [facility] Last Admin: 12/28/22 08:13 Dose: 1,000 mcg Documented By: CHESTER Dextrose (Dextrose 50 % 25 Gm/50 Ml Syringe) 25 gm IVPUSH Q15M PRN; Protocol PRN Reason: per Hypoglycemia Standing Ord. Docusate Sodium (Docusate Sodium 100 Mg Capsule) 100 mg PO BID [facility] Last Admin: 12/28/22 08:13 Dose: 100 mg Documented By: CHESTER Ergocalciferol (Ergocalciferol (Vitamin D2) 1,250 Mcg Capsule) 1,250 mcg PO Fr@0900 [facility] Ferrous Sulfate (Ferrous Sulfate 324 Mg Tablet.) 324 mg PO DAILY [facility] Last Admin: 12/28/22 08:13 Dose: 324 mg Documented By: CHESTER Furosemide (Furosemide 40 Mg Tablet) 40 mg PO BID [facility]; Protocol Last Admin: 12/28/22 08:13 Dose: 40 mg Documented By: CHESTER Glucose (Glucose Gel 15 Gm Gel..Gram.) 15 gm PO Q15M PRN; Protocol PRN Reason: per Hypoglycemia Standing Ord. Insulin Human Lispro (Insulin Lispro 100 Unit/Ml 3 Ml Vial) 0 unit SUBCUT QIDACHS [facility]; Protocol Last Admin: 12/28/22 11:51 Dose: 2 unit Documented By: CHESTER Metformin HCl (Metformin Hcl 500 Mg Tablet) 500 mg PO DAILY [facility] Metoclopramide HCl (Metoclopramide Hcl 5 Mg Tablet) 5 mg PO TID PRN PRN Reason: nausea and vomiting Olanzapine (Olanzapine 2.5 Mg Tablet) 2.5 mg PO DAILY [facility] Last Admin: 12/28/22 08:13 Dose: 2.5 mg Documented By: CHESTER Omeprazole (Omeprazole 20 Mg Capsule.) 20 mg PO DAILY@0630 [facility] Last Admin: 12/28/22 05:40 Dose: 20 mg Documented By: DALTON Sodium Chloride (0.9 % Sodium Chloride Flush 3 Ml Syringe) 3 ml IVFLUSH QSHIFT [facility] Last Admin: 12/28/22 08:21 Dose: 3 ml Documented By: CHESTER Sucralfate (Sucralfate 1 Gm Tablet) 1 gm PO QID [facility] Last Admin: 12/28/22 11:51 Dose: 1 gm Documented By: CHESTER Trazodone HCl (Trazodone Hcl 50 Mg Tablet) 50 mg PO BEDTIME [facility] Last Admin: 12/27/22 21:58 Dose: 50 mg Documented By: DALTON Labs 12/28/22 08:29 12/27/22 03:26 Labs: Laboratory Results - last 24 hr 12/27/22 12/28/22 12/28/22 20:10 07:17 08:29 MCV 88.1 MCH 28.8 MCHC 32.6 RDW 18.3 H Plt Count 264 MPV 9.9 Absolute Nucleated RBC 0.000 Nucleated RBC % (auto) 0.0 POC Glucose 75 88 Estimat Average Glucose Hemoglobin A1c % 12/28/22 12/28/22 08:29 11:40 MCV MCH MCHC RDW Plt Count MPV Absolute Nucleated RBC Nucleated RBC % (auto) POC Glucose 171 H Estimat Average Glucose 123 Hemoglobin A1c % 5.9 Assessment and Plan (1) DVT (deep venous thrombosis): Status: Acute (2) Acute blood loss anemia: Status: Acute (3) Hypoglycemia: Status: Acute (4) CHF (congestive heart failure): Status: Acute (5) Gynecologic cancer: Status: Acute Plan 77-year-old female with a PMH significant for HTN, HLD, insulin-dependent diabetes type 2, CKD, DVT, COPD, anemia, anxiety, AFib on Eliquis, HFrEF, and 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 ? Pt will be admitted to the hospital for treatment of?altered mental status secondary to hypoglycemia, hypomagnesemia, and anemia. Hypoglycemia hyperglycemia resolved blood sugars elevated 150-250 range, hemoglobin A1c 5.[address] back on metformin 500 daily continue diabetic diet Acute on chronic normocytic anemia Patient's H&H 7.1/22.4 on admission, Likely multifactorial:? secondary to poor p.o. intake, metastatic malignancy, ?mild gastritis d/t dexamethasone use received 5 blood transfusions while at [facility] during last admission s/p 1 unit of PRBCs,hct improved follow cbc GI consult at [facility] revealed unremarkable endoscopy and colonoscopy Stool positive for occult blood, though no melena, hematochezia seen by GI , repeat endoscopy if noted to have recurrent bleed or drop in hematocrit Left leg DVT Pt developed DVT during PT at [facility] in early October, was started on Eliquis Eliquis held d/t anemia and stool positive for occult blood IVC placed Adenocarcinoma of gynecological origin, high-grade CT of abdomen at [facility] showed multiple masses concerning for malignancy with gynecological origin of potential involvement of colon CT needle-guided biopsy on right pelvic mesenteric mass on 12/05/2022 showed adenocarcinoma of gynecological origin, high-grade Patient not a candidate for chemotherapy d/t weakness and immobility Palliative care was discussed, but patient wished to go to short-term rehab for PT and strength training in the attempt to become a candidate for chemotherapy Patient should follow-up outpatient with Oncology and [facility] due to lower abdominal pain will place on oxycodone Hypomagnesemia magnesium 1.2 at time presentation, repleted magnesium improved to 1.8 AFib on Eliquis Patient apparently noted to have been in AFib at previous hospitalization at [facility] EKG now shows sinus rythm Hold Eliquis due to anemia,Continue carvedilol Monitor on telemetry, if hematocrit remains stable will resume Eliquis due to high [id number] vasc Hx of recurrent pleural effusion Patient received thoracocentesis and chest tube placement on 12/02 at [facility],Pleural fluid cytology was negative for malignancy Current CXR shows moderate to large right pleural effusion Patient asymptomatic, satting at 97% O2 on RA Continue furosemide, monitor respiratory status HFrEF Patient with multiple echoes and [facility], EF noted to be 45-50% with wall motion abnormalities and grade 2 moderate diastolic dysfunction Nuclear stress test at [facility] showed scar with minimal surrounding reversible ischemia BNP elevated at 753, baseline unknown, patient asymptomatic with trace pitting edema bilaterally, worse on left leg Continue furosemide Low-salt diet Hypoalbuminemia Likely secondary to poor p.o. intake Glucerna t.i.d. COPD Not in acute exacerbation, Continue home inhalers HTN stable BP continue amlodipine HLD Continue statin Hold fenofibrate, is non formulary DNR/DNI DVT Prophylaxis: Pnematic boots Pt. will require continued inpatient hospitalization for close monitoring of anemia,and hypoglycemia. Time Spent With Patient Time: Total time managing care of this patient today ____ minutes. Quality Stroke Does the patient have a stroke diagnosis?: No VTE Prior VTE?: Yes Approximate Date of Prior VTE: 09/11/22 VTE Risk Level:: Medical - moderate - high VTE Device Contraindication: N/A - Device Ordered VTE Drug Contraindication: Treatment Not Indicated
[2022-12-28 16:09] LABS: Glucose, Whole Blood 199 mg/dL (60-115)
[2022-12-28 20:00] VITALS: BP 125/50; PULSE 75; RESP 18; TEMP 36.3; O2SAT 94
[2022-12-28 20:55] LABS: Glucose, Whole Blood 180 mg/dL (60-115)
[2022-12-28] MEDS: HYDROcodone Bit/Acetam 5/325 TABLET 1 TAB PO (22:00)
[2022-12-28] MEDS: traZODone HCL 50 MG TABLET PO (22:00)
[2022-12-28 23:58] VITALS: BP 114/47; PULSE 65; RESP 18; TEMP 37; O2SAT 96
[2022-12-29 03:29] VITALS: BP 139/50; PULSE 66; RESP 18; TEMP 36; O2SAT 95
[2022-12-29] MEDS: Omeprazole 20 MG CAPSULE.DR PO (06:17)
[2022-12-29 07:27] VITALS: BP 146/58; PULSE 68; RESP 20; TEMP 36.3; O2SAT 96
[2022-12-29 07:40] LABS: Glucose, Whole Blood 112 mg/dL (60-115)
[2022-12-29] MEDS: metFORMIN HCl 500 MG TABLET PO (08:17)
[2022-12-29] MEDS: Furosemide 40 MG TABLET PO (08:17)
[2022-12-29] MEDS: amLODIPine Besylate 5 MG TABLET PO (08:17)
[2022-12-29] MEDS: HYDROcodone Bit/Acetam 5/325 TABLET 1 TAB PO (08:17)
[2022-12-29] MEDS: OLANZapine 2.5 MG TABLET PO (08:17)
[2022-12-29] MEDS: Sucralfate 1 GM TABLET PO ×2 (08:18→12:00)
[2022-12-29] MEDS: carvediloL 12.5 MG TABLET PO (08:18)
[2022-12-29] MEDS: Atorvastatin Calcium 20 MG TABLET PO (08:18)
[2022-12-29] MEDS: Cyanocobalamin (Vitamin B-12) 1,000 MCG TABLET 1000 MCG PO (08:18)
[2022-12-29] MEDS: Docusate Sodium 100 MG CAPSULE PO (08:18)
[2022-12-29] MEDS: 0.9 % Sodium Chloride Flush 3 ML SYRINGE IVFLUSH (08:18)
[2022-12-29] MEDS: Ferrous Sulfate 324 MG TABLET.DR PO (08:18)
--- NOTE | 2022-12-29 09:45 | MHC.CM.PN ---
Per MD, Patient is medically cleared for dc to SNF/STR today. Patient will dc to her first choice facility/[facility] today at 1PM, via [facility]. Patient and her /HCP/Vivek @ [phone] are aware of and in agreement with the dc plan. Last IMM addressed on 12/27/2022.
--- NOTE | 2022-12-29 10:21 | PM.DS ---
DS: Providers Provider Date of Service: 12/29/22 Date of admission: 12/26/22 13:31 Primary care physician: Unknown Physician Consults: 12/26/22 13:35 Consult to Vascular Surgery Routine Consulting Provider: [facility] [place] [facility] Services Reason for consultation: Pt with anemia, heme+ stool, stopping Eliquis, with left DVT DS: Diagnosis Discharge Diagnosis (1) DVT (deep venous thrombosis): Status: Acute (2) Acute blood loss anemia: Status: Acute (3) Hypoglycemia: Status: Acute (4) CHF (congestive heart failure): Status: Acute (5) Gynecologic cancer: Status: Acute DS: Summary Hospital Course Hospital Course: history of presenting illness : Date of Service: 12/26/22 Attending physician on admission: Soila Smith Chief Complaint: AMS, hypoglycemia Pt is a 77-year-old female with a PMH significant for HTN, HLD, insulin-dependent diabetes type 2, CKD, DVT, COPD, anemia, anxiety, AFib on Eliquis, HFrEF, and 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 Patient is in short-term rehab at [facility] and was found by staff this morning to be diaphoretic and poorly responsive.? POC glucose was measured at 39.? EMS call, IV was established, and patient was started on D10 with improvement to mentation.? Patient notes she has to be only on oral diabetic medications -- metformin and glipizide -- but started on insulin of week ago after recent discharge from [facility].? Patient with a history of cachexia and anorexia, but states that she has been eating well lately.? During current interview patient is alert and oriented x4 and asymptomatic.? Her only complaint is fatigue, chronic leg swelling, and chronic mild lower abdominal pain.? Denies chest pain/pressure, palpitations.? No shortness of breath in denies headache, lightheadedness, dizziness. Of note, pt recently was at [facility] for a prolonged admission from 11/25-12/19/2022.? Use supra gently admitted for acute hypoxic respiratory failure and right-sided pneumonia with large right pleural effusion and required chest tube.? Hospital course complicated by Gram-negative haley bacteremia, [place]RON, lethargy, hypoxia, bradycardia, and severe acidosis that required an ICU stay on BiPAP.? CT of abdomen and pelvis also found multiple masses suspicious for metastatic malignancy.? CT-guided biopsy on 12/05 found high-grade and dental carcinoma of gynecological origin with likely multiple metastases to colon.? During patient's stay she also developed AFib and echocardiogram revealed reduced LVEF of 45-50%.? Patient was not found to be a candidate for chemotherapy due to deconditioning.? Palliative care was discussed with family, but patient elected to go to short-term rehab in order to gain strength and mobility in order to become a candidate for chemotherapy.? Of note, patient was previously at [facility] for physical therapy and rehab in October 2022, was found there to have a DVT of left lower extremity and started on Eliquis. In the ED patient was afebrile, slightly hypotensive at 128/58, satting at 96% on RA. Labs were significant for H&H of 7.1/22.4, POC glucose as low as 37, magnesium of 1.2, ALT 51, alk-phos of 155, BNP 753, albumin 1.8.? Stool positive for occult blood. CXR showed moderate to large right pleural effusion. ?EKG demonstrated sinus bradycardia of 57 with premature supraventricular complexes and no evidence of ST elevations or depressions. Pt was treated with D10, Mag sulfate, furosemide, and given 1 unit of PRBCs. Pt will be admitted to the hospital for treatment of?altered mental status secondary to hypoglycemia, hypomagnesemia, and anemia. 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 ? Pt will be admitted to the hospital for treatment of?altered mental status secondary to hypoglycemia, hypomagnesemia, and anemia. Hypoglycemia, admitted to medical floor, home dose of insulin discontinued,hyperglycemia resolved blood sugars? elevated 150-250 range, hemoglobin A1c 5.9, place back on metformin 500 bid continue diabetic diet, monitor blood sugars. Acute on chronic normocytic anemia, Patient's H&H 7.1/22.4 on admission, Likely multifactorial:? secondary to poor p.o. intake, metastatic malignancy, ?mild gastritis d/t dexamethasone use,received 5 blood transfusions while at [facility] during last admission, received 1 unit of PRBCs,hct improved, and remains stable, GI consult at [facility] revealed unremarkable endoscopy and colonoscopy, Stool positive for occult blood, though no melena, hematochezia seen by GI , no intervention required since hematocrit remains stable with no active bleeding. Left leg DVT Pt developed? DVT during PT at [facility] in early October, was started on Eliquis, Eliquis held d/t anemia and stool positive for occult blood and IVC placed , since patient H&H remains stable and noted a no active bleed patient placed back on Eliquis 2.5 mg b.i.d. since also has history of AFib documented at [facility] with charge vascular score of 7 Adenocarcinoma of gynecological origin, high-grade CT of abdomen at [facility] showed multiple masses concerning for malignancy with gynecological origin of potential involvement of colon,CT needle-guided biopsy on right pelvic mesenteric mass on 12/05/2022 showed adenocarcinoma of gynecological origin, high-grade, Patient not a candidate for chemotherapy d/t weakness and immobility, Palliative care was discussed, but patient wished to go to short-term rehab for PT and strength training in the attempt to become a candidate for chemotherapy, Patient should follow-up outpatient with [facility], due to lower abdominal pain will placed on Lorcet. Hypomagnesemia magnesium 1.2 at time presentation, repleted magnesium improved to 1.8 AFib on Eliquis Patient apparently noted to have been in AFib at previous hospitalization at [facility],EKG now shows sinus rythm,Continue carvedilol, hematocrit remains stable, resume Eliquis due to high [id number] vasc Hx of recurrent pleural effusion Patient received thoracocentesis and chest tube placement on 12/02 at [facility],Pleural fluid cytology was negative for malignancy,Current CXR shows moderate to large right pleural effusion Patient asymptomatic, satting at 97% O2 on RA, Continue furosemide, monitor respiratory status HFrEF Patient with multiple echoes and [facility], EF noted to be 45-50% with wall motion abnormalities and grade 2 moderate diastolic dysfunction Nuclear stress test at [facility] showed scar with minimal surrounding reversible ischemia BNP elevated at 753, baseline unknown, patient asymptomatic with trace pitting edema bilaterally, worse on left leg Continue furosemide, Low-salt diet Hypoalbuminemia Likely secondary to poor p.o. intake, Glucerna t.i.d. COPD Not in acute exacerbation, Continue home inhalers HTN ?stable BP continue amlodipine HLD Continue statin and fenofibrate. Time Spent with Patient Time attestation: Total time managing care of this patient today ____ minutes. Discharge coordination time: Greater than 30 minutes Quality: Safe Use of Opioids Does Pt have an Active Cancer Diagnosis on the Problem List?: No Quality: Stroke Does the patient have a stroke diagnosis?: No Physical Exam Vital Signs: Vital Signs: Last Vital Signs Temp 97.4 F 12/29/22 07:27 Pulse 68 12/29/22 07:27 Resp 20 12/29/22 07:27 BP 146/58 H 12/29/22 07:27 Pulse Ox 96 12/29/22 07:27 O2 Del Method Room Air 12/29/22 07:27 BMI result Body Mass Index 24.6 Const: Other: General? awake alert x3,resting comfortably in no acute distress.? anicteric sclera Neck supple no JVD. CVS? regular rate rhythm, Respiratory lungs clear to auscultation, no respiratory distress, no wheeze, no rhonchi. Gastrointestinal abdomen soft, bowel sounds audible, lower abdominal discomfort with palpation, no guarding , no rigidity. Extremities ch. left leg bigger than right , mild pitting edema. Neuro nonfocal , decreased strength lower extremities left greater than right. Skin no rash psych appropriate affect do DS: Data Data Completed and Pending Labs on day of discharge: Laboratory Results - last 24 hr 12/28/22 12/28/22 12/28/22 11:40 16:06 20:46 POC Glucose 171 H 199 H 180 H 12/29/22 07:34 POC Glucose 112 Discharge Plan Discharge Anticipated Discharge Date/Time: 12/29/22 10:11 Patient Disposition: Xfer SNF Discharge Diagnosis: hypoglycemia acute on chronic normocytic anemia left leg DVT Referrals: [facility] [Outside] - 1 Week Physician,Unknown J [Primary Care Provider] - 1 Week Discharge Medications: New hydrocodone-acetaminophen 5-325 mg Tablet 1 tab PO TID Qty: 15 0RF Rx Instructions: Partial Fill upon patient request. amlodipine 5 mg Tablet 5 mg PO DAILY Qty: 30 0RF Protocol: Hold for SBP< HOLD for SBP < : 90 metoclopramide HCl 5 mg Tablet 5 mg PO TID PRN (Reason: nausea and vomiting) Qty: 30 0RF metformin 500 mg tablet 500 mg PO BID Qty: 60 0RF Continued furosemide 40 mg Tablet 40 mg PO BID acetaminophen 325 mg Tablet 650 mg PO Q4H PRN (Reason: Pain) atorvastatin 20 mg tablet 20 mg PO DAILY carvedilol 12.5 mg tablet 12.5 mg PO BID ipratropium-albuterol 0.5 mg-3 mg(2.5 mg base)/3 mL Solution For Nebulization 3 ml INHALATION Q4H PRN (Reason: Wheezing) trazodone 50 mg Tablet 50 mg PO BEDTIME sucralfate 1 gram Tablet 1 g PO QID cyanocobalamin (vitamin B-12) 1,000 mcg Tablet 1,000 mcg PO DAILY olanzapine 2.5 mg Tablet 2.5 mg PO DAILY dronabinol 2.5 mg Capsule 2.5 mg PO BID Rx Instructions: administer before lunch and evening meal/dinner ascorbic acid (vitamin C) 500 mg Tablet 500 mg PO DAILY pantoprazole 40 mg Tablet,Delayed Release (Dr/Ec) 40 mg PO DAILY ferrous sulfate 325 mg (65 mg iron) Tablet 325 mg PO DAILY lidocaine 5 % Adhesive Patch,Medicated 1 patch TOPICAL DAILY Rx Instructions: leave on most painful area for up to 12 hrs docusate sodium 100 mg Capsule 100 mg PO BID ergocalciferol (vitamin D2) 1,250 mcg (50,000 unit) Capsule 1,250 mcg PO QWEEK albuterol sulfate 90 mcg/actuation Hfa Aerosol Inhaler 2 puff INHALATION Q6H PRN (Reason: Wheezing) fenofibrate nanocrystallized 48 mg Tablet 48 mg PO DAILY Eliquis 2.5 mg Tablet 2.5 mg PO BID Discontinued metoclopramide HCl [Reglan] 5 mg Tablet 5 mg PO QID Rx Instructions: with meals and at bedtime amlodipine 10 mg Tablet 10 mg PO DAILY dexamethasone 4 mg Tablet 4 mg PO DAILY insulin lispro [Humalog KwikPen Insulin] 100 unit/mL Insulin Pen 1 sliding scale dose SUBCUT USEASDIRECTD insulin glargine 100 unit/mL (3 mL) Insulin Pen 15 unit SUBCUT BEDTIME Discharge Orders: Discharge Order (Routine); Ordered 12/29/22 Ordered By: Soila Smith Diet: Diabetic diet Activity on Discharge: As tolerated Stand Alone Forms: Patient Portal Discharge page Care Plan Goals: continue pain medication for abdominal discomfort monitor blood sugars, placed on metformin 500 b.i.d. monitor CBC in 1 week since placed back on Eliquis being discharge to rehab for less than 30 days. [facility] for pain admission he now over episode will be if Health Concerns: gynecological malignancy follow-up with [facility] Plan of Treatment: follow-up with primary care physician and gynecological malignancy Assessment: as above
[2022-12-29 11:47] VITALS: BP 132/62; PULSE 76; RESP 17; TEMP 36.6; O2SAT 96
[2022-12-29 11:50] LABS: Glucose, Whole Blood 165 mg/dL (60-115)
[2022-12-29] MEDS: Insulin Lispro 100 UNIT/ML 3 ML VIAL SUBCUT (12:00)
[2022-12-29] MEDS: Acetaminophen 325 MG TABLET 650 MG PO (12:31)
== END 2022-12-29 13:18 | disposition skilled nursing facility (03) | DRG 299 ==
LOC: HO.ED 11:02 → HO.EDOVER 13:40 → HO.IMC 13:47
PROVIDERS: Internal Medicine; Internal Medicine Gastroenterology; Physician Assistant; Surgery Vascular Surgery; Admitting Provider Student in an Organized Health Care Education/Training Program; Emergency Provider Emergency Medicine; PCP Nurse Practitioner Family; Visit Provider Hospitalist
PROC: 06H03DZ Insertion of Intraluminal Device into Inferior Vena Cava, Percutaneous Approach (ICD-10-PCS; principal; 2022-12-27 08:00)
DX: I82.4Z1 Acute embolism and thrombosis of unspecified deep veins of right distal lower extremity (principal); I50.23 Acute on chronic systolic (congestive) heart failure; I13.0 Hypertensive heart and chronic kidney disease with heart failure and stage 1 through stage 4 chronic kidney disease, or unspecified chronic kidney disease; D62 Acute posthemorrhagic anemia; C78.5 Secondary malignant neoplasm of large intestine and rectum; E11.649 Type 2 diabetes mellitus with hypoglycemia without coma; F41.9 Anxiety disorder, unspecified; E83.42 Hypomagnesemia; K29.70 Gastritis, unspecified, without bleeding; J44.9 Chronic obstructive pulmonary disease, unspecified; E88.09 Other disorders of plasma-protein metabolism, not elsewhere classified; T38.0X5A Adverse effect of glucocorticoids and synthetic analogues, initial encounter; D63.0 Anemia in neoplastic disease; C80.1 Malignant (primary) neoplasm, unspecified; E78.5 Hyperlipidemia, unspecified; N18.9 Chronic kidney disease, unspecified; E11.22 Type 2 diabetes mellitus with diabetic chronic kidney disease; D63.1 Anemia in chronic kidney disease; Z87.891 Personal history of nicotine dependence; Z79.84 Long term (current) use of oral hypoglycemic drugs; Z79.01 Long term (current) use of anticoagulants; Z79.899 Other long term (current) drug therapy
CPT/HCPCS: 36415; 37191; 71045; 80048; 80076; 81001; 82272; 82728; 82947; 83036; 83540; 83735; 83880; 85025; 85027; 85045; 85610; 85730; 86850; 86900; 86901; 86923; 87086; 93005; 97162; 99152; 99285; C1769; C1880; C1894; J1940; J3475; P9016

== ENCOUNTER → 2022-12-26 13:31 | Outpatient (BNV) | payer MEDICARE, SELFPAY | PROVIDERS: Admitting Provider Student in an Organized Health Care Education/Training Program; Emergency Provider Emergency Medicine; PCP Nurse Practitioner Family; Visit Provider Internal Medicine Gastroenterology | DX: D62 Acute posthemorrhagic anemia (principal); C57.9 Malignant neoplasm of female genital organ, unspecified | CPT/HCPCS: 99232 ==